=== PATIENT | male | born 1945 | race Caucasian/White ===

== ENCOUNTER 2020-07-22 08:31 | Emergency (ER) | payer OTHER ==
--- OUTSIDE RECORDS SUMMARY | 2020-07-22 08:36 | XMS REPORT | Continuity of Care Document ---
:1945 Author Organization [facility] t Address [address] [place] [address] Care Team Providers Name Role Phone Sj Meneses MD Primary Care Physician Keon Palmer MD Attending Clinician Daniel Alfaro MD Attending Clinician [phone] Jama CAR Attending Clinician Unavailable Akila MEDEROS Attending Clinician Jose Carlos Huertas MD Attending Clinician Jakub DUBOIS Attending Clinician Unavailable Anand [facility] Attending Clinician Unavailable Maryuri Sin NP Attending Clinician Sunday Moreira [facility] Attending Clinician Unavailable Angel Mera MD Attending Clinician Gita Kinsey MD Attending Clinician Toshia CAR Attending Clinician Unavailable Magdi DUBOIS Attending Clinician Unavailable Amber Hernandez RD Attending Clinician Unavailable Misael Garrett MD Attending Clinician Justa MEDEROS Attending Clinician Joyce [facility] Attending Clinician Unavailable Андрей CAR Attending Clinician Unavailable Vlad Moreno NP Attending Clinician Alfred DUBOIS Attending Clinician Unavailable Provider Attending Clinician Unavailable Marko MEDEROS Attending Clinician Leora Aldridge MD Attending Clinician Provider Attending Clinician Lab, Fam Pob I Attending Clinician Unavailable Doctor Unassigned, Name Attending Clinician Unavailable ALEKSANDAR Admitting Clinician Unavailable AKILA Admitting Clinician Unavailable AVINASH Admitting Clinician Unavailable Payers Payer Name Policy Type Policy Effective Date Expiration Date Sour ce Number MEDICAREMEDICARE PART [id number] 2008 Ho carmelo A AND 00:00:00 Cheondoism [id number] 2008[facility] COLONIALCOLONIAL [id number] 2012 Carmichael [id number] 2012 00:00:00 Met yaquelin SolanoCommercial Problems Condition Condition Condition Status Onset Resolution Last Treating Co mments Source Name Details Category Date Date Treatment Clinician Date Confusion Confusion Disease Active [facility] 4-27 Methodi 00:00: st 00 Aphasia Aphasia Disease Active [facility] 4-27 Methodi 00:00: st 00 Expressive Expressive Disease Active [facility] aphasia aphasia 3-15 Methodi 00:00: st 00 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 Added automatic ally from request for surgery [id number] Weight Weight Disease Active Overview: Car n loss loss 2-02 Formattin Methodi 00:00: g of this st 00 note might be different from the original. Added automatic ally from request for surgery [id number] Mass of Mass of Disease Active Overview: [place] gastroesop gastroesop 2-02 [place] Methodi hageal hageal 00:00: g of this st junction junction 00 note might be different from the original. Added automatic ally from request for surgery [id number] Malignant Malignant Disease Active [facility] [facility] tumor of tumor of -02 Method i abdominal abdominal 00:00: st part of part of 00 esophagus esophagus Allergies, Adverse Reactions, Alerts Allergy Allergy Status Severity Reaction(s) Onset Inactive Treating Comm ents Source Name Type Date Date Clinician Aspirin Propensi Active Other (See Nose [facility] ty to Comments) 3-16 bleed Methodi adverse 00:00: st reaction 00 s to drug Penicill Propensi Active Rash [place] ins ty to 04-09 Methodi adverse 00:00: st reaction 00 s to drug Family History Family Member Diagnosis Comments Start Date Stop Date Source Natural brother Lung cancer Carmichael Cheondoism Natural father Heart disease Carmichael Cheondoism Natural mother Heart disease [place]ondoism Paternal grandmother Heart disease [place] Social History Social Habit Start Date Stop Date Quantity Comments Source History SDOH [facility] Meth odist Alcohol Std Drinks History SDOH [place] Meth odist Alcohol Binge Exposure to Not sure [facility] Metho dist SARS-CoV-2 (event) Tobacco use and 2020-06-04 2020-06-04 Never used [facility] ethodist exposure 00:00:00 00:00:00 Alcohol intake 2020-06-04 2020-06-04 Lifetime [facility] thodist 00:00:00 00:00:00 non-drinker (finding) History SDOH 2020-04-09 2020-04-09 1 [place] Meth odist Alcohol Frequency 00:00:00 00:00:00 [birth year] Amol Null ethodist 00:00:00 00:00:00 Smoking Status Start Date Stop Date Source Never smoker [place] Gurpreetis t Medications Ordered Filled Start Stop Current Ordering Indication Dosage Frequency Signature Comments Components Source Medication Medication Date Date Medication? Clinician (SIG) Name Name pantoprazol Yes 40mg QD Take 40 mg Carmichael e 4-30 by mouth Methodi (PROTONIX) 15:38: daily. st 40 MG EC 41 tablet bisoprolol Yes 2.5mg Q.5D Take 2.5 [place] (ZEBETA) 5 4-30 mg by Methodi MG tablet 15:38: mouth 2 st 41 (two) times a day. aspirin 81 Yes 81mg QD Chew 81 mg [place] mg chewable 4-30 daily. Method i tablet 15:38: st 41 clopidogreL 2020- Yes 75mg QD Take 1 [place] (PLAVIX) 75 4-30 05-18 tablet (75 M ethodi mg tablet 00:00: 23:59 mg total) st 00 :00 by mouth daily for 18 days. rosuvastati Yes 10mg QD Take 10 mg Carmichael n (CRESTOR) 4-07 by mouth Meth aishwarya 10 mg 00:00: daily. st tablet 00 predniSONE 2020- No TAKE 2 [place] (DELTASONE) 3-26 04-30 TABLETS BY M ethodi 50 mg 00:00: 00:[address] tablet 00 :00 DAILY FOR 5 DOSES TAKE ON DAYS 1 5 OF CHEMOTHERA PY aspirin 2020- No 81mg QD Take 1 Carmichael (ECOTRIN) 3-20 04-19 tablet (81 Met hodi 81 MG 00:00: 23:59 mg total) st enteric 00 :00 by mouth coated daily for tablet 30 days. rosuvastati 2020- No 20mg QD Take 1 [place] n (CRESTOR) 3-19 04-18 tablet (20 M ethodi 20 mg 00:00: 23:59 mg total) st tablet 00 :00 by mouth nightly for 30 days. aspirin 2020- No 81mg QD Take 81 mg [place] (ECOTRIN) 3-16 03-16 by mouth Metho di 81 MG 10:32: 00:[address] enteric 03 :00 coated tablet predniSONE 2020- No Chemotherap 100mg QD Take 2 Carmichael (DELTASONE) 3-04 03-09 y induced tablets Methodi 50 mg 00:00: 23:59 neutropenia (100 mg s t tablet 00 :00 (HCC) total) by mouth daily for 5 doses. Take on days 1-5 of chemothera py. doxycycline 2020-2020- No Chemotherap 100mg Q.5D Take 1 Carmichael (DORYX) 100 2- 03-29 y-induced tablet Methodi MG EC 00:00: 23:59 neutropenia (100 mg s t tablet 00 :00 (HCC) total) by mouth 2 (two) times a day for 30 days. baclofen 5 Yes 5mg Q.[id number] Take 1 [facility]ichael mg tablet 2- [id number] tablet (5 Methodi 00:00: 3D mg total) st 00 by mouth 3 (three) times a day as needed (hiccups). lovastatin 2020- No 40mg QD Take 40 mg [place]ichael (MEVACOR) 04-27 by mouth Metho di 10 MG 13:49: 00:[address] tablet 22 :00 clopidogreL No 75mg QD Take 75 mg [place]ichael (PLAVIX) 75 04-27 by mouth Met hodi mg tablet 13:49: 00:[address] 22 :00 calcium 2020- No 500mg Q.[id number] Chew 1 Carmichael carbonate 04-27 [id number] tablet M ethodi (TUMS) 200 00:00: 23:59 3D ([address] mg calcium 00 :00 total) 3 (500 mg) (three) chewable times a tablet day as needed for indigestio n for up to 30 days. bisoprolol 2020- No 5mg Q.5D Take 1 [place] (ZEBETA) 5 04-27 tablet (5 Met hodi MG tablet 00:00: 00:00 mg total) st 00 :00 by mouth 2 (two) times a day for 30 days. pantoprazol 2020- No 40mg QD Take 1 [place] e 04-27 tablet (40 Methodi (Protonix) 00:00: 00:00 mg total) s t 40 MG EC 00 :00 by mouth tablet daily for 30 days. pantoprazol 2020- No 40mg Q.5D Take 1 [place] e 04-27 tablet (40 Methodi (Protonix) 00:00: 00:00 mg total) s t 40 MG EC 00 :00 by mouth 2 tablet (two) times a day. levoFLOXaci 2020- No 500mg QD Take 1 [place] n 04-26 tablet Methodi (LEVAQUIN) 00:00: 00:00 ([address] 500 MG 00 :00 total) by tablet mouth daily for 180 days. acyclovir 2020- Yes 400mg Q.5D Take 1 [place] (Zovirax) 04-25-17 tablet Methodi 400 MG 00:00: 23:59 ([address] tablet 00 :00 total) by mouth 2 (two) times a day for 180 days. ondansetron 2020- No 4mg Q8H Take 1 [place] ODT 04-25 03-20 tablet (4 Methodi (ZOFRAN-ODT 00:00: 23:59 mg total) st ) 4 MG 00 :00 by mouth disintegrat every 8 ing tablet (eight) hours as needed for nausea or vomiting for up to 30 days. fluconazole 2020- No 200mg QD Take 1 [place] (Diflucan) 04-25 tablet Method i 200 MG 00:00: 00:00 ([address] tablet 00 :00 total) by mouth daily for 180 days. baclofen 5 2020- No 5mg Q.[id number] Take 1 [place]ichael mg tablet 04-18 [id number] tablet (5 Methodi 00:00: 00:00 3D mg total) st 00 :00 by mouth 3 (three) times a day as needed (hiccups). niacin 2020- No 1000mg QD Take 1,000 [place] (Niaspan 04-15- mg by Methodi Extended-Re 17:25: 00:[address] lease) 1000 12 :00 nightly. MG CR tablet pantoprazol 2020- No [place] e 04-06 Methodi (PROTONIX) 00:00: 00:00 st 40 MG EC 00 :00 tablet isosorbide 2020- No [place] mononitrate 04-05 Methodi (IMDUR) 30 00:00: 00:00 st MG 24 hr 00 :00 tablet ondansetron 2020- No [place] ODT 04-05 Methodi (ZOFRAN-ODT 00:00: 00:00 st ) 4 MG 00 :00 disintegrat ing tablet lovastatin 2020- No 40mg QD Take 40 mg Carmichael (MEVACOR) 03-14- by mouth Metho di 40 mg 00:00: 00:[address] tablet 00 :00 clopidogreL 75mg QD Take 75 mg Am[facility] (PLAVIX) 75 03-1408 by mouth Met hodi mg tablet 00:00: 00:[address] 00 :00 BISOPROLOL- 2019-03 1{tbl} QD Take 1 [place] HYDROCHLORO 03-22 02-20 tablet by Me perez THIAZIDE 00:00: 00:[address] ORAL 00 :00 daily. metFORMIN 2019-03 500mg Q.5D Take 500 [place] (GLUCOPHAGE 03-15 02-20 mg by Method i ) 500 mg 00:00: 00:[address] tablet 00 :00 (two) times a day. Vital Signs Vital Name Observation Time Observation Value Comments Source Body temperature 2020-07-12 11:15:00 36.28 Nickie Thao Valdes Body height 2020-07-12 11:15:00 185.4 cm Amol Valdes Body weight 2020-07-12 11:15:00 75.887 kg Amol Valdes BMI 2020-07-12 11:15:00 22.07 kg/m2 Amol Valdes Systolic blood 2020-07-05 12:06:24 129 mm[Hg] Car Valdes pressure Diastolic blood 2020-07-05 12:06:24 82 mm[Hg] Stefani Valdes pressure Heart rate 2020-07-05 12:06:24 78 /min Amol Valdes Oxygen saturation in 2020-07-05 12:06:24 100 /min Amol Valdes Arterial blood by Pulse oximetry Respiratory rate 2020-07-05 07:13:14 17 /min Thao Valdes Procedures Procedure Date / Time Performing Clinician Source Performed BASIC METABOLIC PANEL 2020-07-05 11:20:00 Emil Huertas PHOSPHORUS LEVEL 2020-07-05 11:20:00 Emil Huertas MAGNESIUM LEVEL 2020-07-05 11:20:00 Emil Huertas ESTIMATED GFR 2020-07-05 11:20:00 Emil Huertas US CAROTID DUPLEX 2020-07-05 09:00:00 Arpita Garrison BILATERAL HC COMPLETE BLD COUNT 2020-07-05 06:15:00 Dinakar, Emil reyes Cheondoism W/AUTO DIFF Jose Carlos BASIC METABOLIC PANEL 2020-07-05 06:15:00 Dinakar, Emil Valdes Jose Carlos MAGNESIUM LEVEL 2020-07-05 06:15:00 Dinakar, Emil Moscosora PHOSPHORUS LEVEL 2020-07-05 06:15:00 Dinakar, Emil Branch FL ESOPHAGRAM SINGLE 2020-07-04 14:46:42 Dinakar, Emil Valdes CONTRAST Jose Carlos CBC WITH PLATELET AND 2020-07-04 04:00:00 Dinakar, Emil Valdes DIFFERENTIAL Jose Carlos BASIC METABOLIC PANEL 2020-07-04 04:00:00 Dinakar, Emil Moscosora MAGNESIUM LEVEL 2020-07-04 04:00:00 Dinakar, Emil Lewis odgiana Moscosora PHOSPHORUS LEVEL 2020-07-04 04:00:00 Dinakar, Emil Branch LIPID PANEL 2020-07-04 04:00:00 Arpita Garrison ESTIMATED GFR 2020-07-04 04:00:00 Dinakar, Emil Moscosora MANUAL DIFFERENTIAL 2020-07-04 04:00:00 Dinakar, Emil Branch EEG AWAKE/ASLEEP LESS THAN 2020-07-03 15:14:25 Arpita Garrison 41 MIN CBC WITH PLATELET AND 2020-07-03 05:10:00 Dinakar, Emil reyes Cheondoism DIFFERENTIAL Jose Carlos MANUAL DIFFERENTIAL 2020-07-03 05:10:00 Dinakar, Emil Valdes Jose Carlos BASIC METABOLIC PANEL 2020-07-03 04:00:00 Dinakar, Emil Moscosora MAGNESIUM LEVEL 2020-07-03 04:00:00 Dinakar, Emil Lewis odist Jose Carlos PHOSPHORUS LEVEL 2020-07-03 04:00:00 Dinakar, Emil Branch ESTIMATED GFR 2020-07-03 04:00:00 Dinakar, Emil Branch URINE DRUGS OF ABUSE 2020-07-03 00:24:00 Steffany Edwards SCREEN SEDIMENTATION RATE 2020-07-02 22:30:00 Steffany Edwards ethodist MRI BRAIN W WO CONTRAST 2020-07-02 21:40:00 Jarod Veloz MRA NECK WO CONTRAST 2020-07-02 21:15:00 Steffany Edwards MRA HEAD WO CONTRAST 2020-07-02 21:10:00 Steffany Edwards HOMOCYSTINE, PLASMA 2020-07-02 19:32:00 Steffany Edwards FOLATE LEVEL 2020-07-02 19:32:00 Steffany Edwards VITAMIN B12 LEVEL 2020-07-02 19:32:00 Steffany Edwards thodist THYROID STIMULATING 2020-07-02 19:32:00 Steffany Edwards HORMONE T4, FREE 2020-07-02 19:32:00 Steffany Edwards C-REACTIVE PROTEIN 2020-07-02 19:32:[address] HEAD WO CONTRAST 2020-07-02 18:23:36 Emil Huertas BLOOD CULTURE, AEROBIC & 2020-07-02 17:30:00 Aleksandar, Emil Valdes ANAEROBIC Jose Carlos CBC WITH PLATELET AND 2020-07-02 17:30:00 Emil Huertas DIFFERENTIAL Jose Carlos FIBRINOGEN 2020-07-02 17:30:00 Emil Huertas PARTIAL THROMBOPLASTIN 2020-07-02 17:30:00 Emil Huertas Cheondoism TIME (PTT) Jose Carlos PROTHROMBIN TIME WITH INR 2020-07-02 17:30:00 Emil Huertas BASIC METABOLIC PANEL 2020-07-02 17:30:00 Emil Huertas HEPATIC FUNCTION PANEL 2020-07-02 17:30:00 Emil Huertas MAGNESIUM LEVEL 2020-07-02 17:30:00 Emil Huertas PHOSPHORUS LEVEL 2020-07-02 17:30:00 DinyangEmil hodgiana Branch URIC ACID LEVEL 2020-07-02 17:30:00 Aleksandar, Emil Carmichael Meth odgiana Branch ESTIMATED GFR 2020-07-02 17:30:00 Dinakarebeca, Emil Carmichael Debbie odgiana Jose Carlos MANUAL DIFFERENTIAL 2020-07-02 17:30:00 [facility]inyang[facility] Che[facility] COVID-19 QUALITATIVE PCR 2020-07-02 13:30:00 Bryan Palmer Cheondoism Silvestre CBC WITH PLATELET AND 2020-06-21 08:00:00 Pingali, Bryan Osuna ton Cheondoism DIFFERENTIAL Silvestre COMPREHENSIVE METABOLIC 2020-06-21 08:00:00 PinBryan snyderton Cheondoism PANEL Silvestre MAGNESIUM LEVEL 2020-06-21 08:00:00 Bryan Palmer Me thodist Silvestre ESTIMATED GFR 2020-06-21 08:00:00 Bryan Palmer Me thodist Silvestre MANUAL DIFFERENTIAL 2020-06-21 08:00:00 PingalBryan khan n Cheondoism Silvestre HC COMPLETE BLD COUNT 2020-05-31 07:45:00 PinBryan snyder Cheondoism W/AUTO DIFF Silvestre COMPREHENSIVE METABOLIC 2020-05-31 07:45:00 PinBryan snyderton Cheondoism PANEL Silvestre MAGNESIUM LEVEL 2020-05-31 07:45:00 Bryan Palmer Me thodist Silvestre ESTIMATED GFR 2020-05-31 07:45:00 Bryan Palmer Me thodist Silvestre SMEAR REVIEW 2020-05-31 07:45:00 Bryan Palmer Me thodist Silvestre PET CT SKULL BASE TO MID 2020-05-30 10:48:00 Bryan Palmer Cheondoism THIGH Silvestre POC GLUCOSE 2020-05-30 09:27:00 Bryan Palmer Me thodist Silvestre POC GLUCOSE 2020-05-23 16:58:00 GitaAmol Mcgarry POC GLUCOSE 2020-05-23 11:52:00 Amol Powell POC GLUCOSE 2020-05-23 07:54:00 Amol Powell CBC WITH PLATELET AND 2020-05-23 04:58:00 Dinakar, Emil reyes Cheondoism DIFFERENTIAL Jose Carlos BASIC METABOLIC PANEL 2020-05-23 04:58:00 Dinakar, Emil reyes Cheondoism Jose Carlos MAGNESIUM LEVEL 2020-05-23 04:58:00 Dinakar, Emil Lewis odgiana Jose Carlos PHOSPHORUS LEVEL 2020-05-23 04:58:00 Dinakar, Emil Branch ESTIMATED GFR 2020-05-23 04:58:00 Dinakar, Emil Lewis odgiana Jose Carlos MANUAL DIFFERENTIAL 2020-05-23 04:58:00 Dinakar, Emil Branch TTE COMPLETE, W CONTRAST, 2020-05-23 02:30:00 Arian Marsh Cheondoism W DOPPLER ([id number]) POC GLUCOSE 2020-05-22 16:33:[address] CHEST W CONTRAST 2020-05-22 16:02:55 Herson Mera ABDOMEN W CONTRAST PELVIS W CONTRAST POC GLUCOSE 2020-05-22 11:53:00 Amol Powell US CAROTID DUPLEX 2020-05-22 10:15:00 Arian Marsh Wy thodist BILATERAL POC GLUCOSE 2020-05-22 08:06:00 Amol Powell CBC WITH PLATELET AND 2020-05-22 04:09:00 Dinakar, Emil reyes Cheondoism DIFFERENTIAL Jose Carlos MANUAL DIFFERENTIAL 2020-05-22 04:09:00 Dinakar, Emil Branch BASIC METABOLIC PANEL 2020-05-22 04:00:00 Dinakar, Emil Moscosora MAGNESIUM LEVEL 2020-05-22 04:00:00 Dinakar, Emil Lewis odist Jose Carlos PHOSPHORUS LEVEL 2020-05-22 04:00:00 Emil Huertas ESTIMATED GFR 2020-05-22 04:00:00 Emil Huertas POC GLUCOSE 2020-05-21 22:50:00 Amol Powell odist Audrey POC GLUCOSE 2020-05-21 20:37:00 Amol Powell Debbie odgiana Audrey POC GLUCOSE 2020-05-21 17:26:00 Amol Powell odgiana Audrey FL FLUOROSCOPY OF TUBE 2020-05-21 15:07:48 Diego Roper on Cheondoism MRI BRAIN W CONTRAST 2020-05-21 14:30:00 Arian Marsh POC GLUCOSE 2020-05-21 12:03:00 Amol Powell odist Audrey POC GLUCOSE 2020-05-21 08:40:00 Amol Powell odgiana Audrey MRI BRAIN WO CONTRAST 2020-05-21 08:00:00 Jimmy Abreu CONSULT TO OSTOMY CARE 2020-05-21 07:42:57 PodtElizabeth NURSE TROPONIN 2020-05-21 06:00:00 Herson Mera Wy thodist CBC WITH PLATELET AND 2020-05-21 05:00:00 DinEmil soria Cheondoism DIFFERENTIAL Jose Carlos BASIC METABOLIC PANEL 2020-05-21 05:00:00 Emil Huertas MAGNESIUM LEVEL 2020-05-21 05:00:00 Emil Huertas PHOSPHORUS LEVEL 2020-05-21 05:00:00 Emil Huertas ESTIMATED GFR 2020-05-21 05:00:00 Emil Huertas MANUAL DIFFERENTIAL 2020-05-21 05:00:00 Emil Huertas TROPONIN 2020-05-21 01:10:00 Herson Mera Me thodist URINE CULTURE 2020-05-21 00:30:00 Emil Huertas URINALYSIS SCREEN AND 2020-05-21 00:30:00 Emil Huertas Cheondoism MICROSCOPY, WITH REFLEX TO Jose Carlos CULTURE URINE DRUGS OF ABUSE 2020-05-21 00:30:00 Emil Huertas Cheondoism SCREEN Jose Carlos POC GLUCOSE 2020-05-20 23:42:00 Emil Huertas Meth odist Jose Carlos URINE CULTURE 2020-05-20 23:15:00 Herson Mera Me thodist LACTIC ACID LEVEL 2020-05-20 23:15:00 Herson Mera LIPID PANEL 2020-05-20 23:15:00 Karim, Jimmy Carmichael Wy thodist HOMOCYSTINE, PLASMA 2020-05-20 23:15:00 Jimmy Abreu Cheondoism FOLATE LEVEL 2020-05-20 23:15:00 Brady, Jimmy Carmichael Wy thodist VITAMIN B12 LEVEL 2020-05-20 23:15:00 Jimmy Abreu Cheondoism SEDIMENTATION RATE 2020-05-20 23:15:00 KarimJimmy Cheondoism C-REACTIVE PROTEIN 2020-05-20 23:15:00 Karim, Jimmy Carmichael Cheondoism PROTHROMBIN TIME WITH INR 2020-05-20 23:15:00 Jimmy Abreu Cheondoism PARTIAL THROMBOPLASTIN 2020-05-20 23:15:00 KarimJimmy stoeric Cheondoism TIME (PTT) URINE DRUGS OF ABUSE 2020-05-20 23:15:00 Jimmy Abreu on Cheondoism SCREEN HIV AG/AB COMBINATION 2020-05-20 23:15:00 Karim Sanhernando calhoun Cheondoism SYPHILIS TOTAL ANTIBODY 2020-05-20 23:15:00 KarimJimmyton Cheondoism URINALYSIS SCREEN AND 2020-05-20 23:15:00 Herson Mera Cheondoism MICROSCOPY, WITH REFLEX TO CULTURE LACTIC ACID LEVEL 2020-05-20 21:20:00 Herson Mera COVID-19 QUALITATIVE PCR 2020-05-20 19:55:00 Herson Mera Cheondoism ECG 12-LEAD 2020-05-20 19:23:29 [address] thodist CT ANGIOGRAM NECK W WO 2020-05-20 19:14:38 Herson Mera Cheondoism CONTRAST CT ANGIOGRAM HEAD W WO 2020-05-20 19:14:05 Herson Mera Cheondoism CONTRAST CT HEAD WO CONTRAST 2020-05-20 19:06:43 Herson Mera Cheondoism CBC WITH PLATELET AND 2020-05-20 18:57:00 Herson Mera Cheondoism DIFFERENTIAL TROPONIN 2020-05-20 18:57:00 Herson Mera Me thodist B NATRIURETIC PEPTIDE 2020-05-20 18:57:00 Herson Mera Cheondoism THYROID STIMULATING 2020-05-20 18:57:00 Herson Mera Cheondoism HORMONE T4, FREE 2020-05-20 18:57:00 Herson Mera Me thodist PROTHROMBIN TIME WITH INR 2020-05-20 18:57:00 Herson Mera Cheondoism PARTIAL THROMBOPLASTIN 2020-05-20 18:57:00 Herson Mera Cheondoism TIME (PTT) MANUAL DIFFERENTIAL 2020-05-20 18:57:00 Herson Mera Cheondoism POC GLUCOSE 2020-05-20 18:50:00 Herson Mera Me thodist ECG ED PRELIMINARY 2020-05-20 18:45:21 Herson Mera Cheondoism INTERPRETATION IR JEJUNAL CATHETER 2020-05-13 15:21:39 Ricky Garrett Cheondoism EVAL/POSSIBLE EXCHANGE POC GLUCOSE 2020-05-13 12:43:00 Ricky Garrett Meth odist CBC WITH PLATELET AND 2020-05-12 08:29:00 Stefany Marr Cheondoism DIFFERENTIAL BASIC METABOLIC PANEL 2020-05-12 08:29:00 Stefany Marr Cheondoism WHOLE BLOOD ELECTROLYTES 2020-05-12 08:29:00 Stefany Marrleila woodson Cheondoism PROTHROMBIN TIME WITH INR 2020-05-12 08:29:00 Stefany Marr Gian danielston Cheondoism PARTIAL THROMBOPLASTIN 2020-05-12 08:29:00 Stefany Marr on Cheondoism TIME (PTT) TYPE AND SCREEN 2020-05-12 08:29:00 Stefany Marr Meth odist MAGNESIUM LEVEL 2020-05-12 08:29:00 Stefany Marr Meth odist ESTIMATED GFR 2020-05-12 08:29:00 Stefany Marr Meth odist MANUAL DIFFERENTIAL 2020-05-12 08:29:00 Stefany Marr Cheondoism CBC WITH PLATELET AND 2020-05-10 08:11:00 Pingali, Bryan Koen [place]ism DIFFERENTIAL Silvestre COMPREHENSIVE METABOLIC 2020-05-10 08:11:00 Pingali, Bryan Herbert [place]ism PANEL Slivestre MAGNESIUM LEVEL 2020-05-10 08:11:00 PingaliBryan Carmichael Me thodist Silvestre ESTIMATED GFR 2020-05-10 08:11:00 Pingali, Bryan Pascualerin Carmichael Me thodist Silvestre MANUAL DIFFERENTIAL 2020-05-10 08:11:00 PingaliBryanto n Cheondoism Silvestre CBC WITH PLATELET AND 2020-05-07 08:30:00 Pingali, Bryan Keon [place]ism DIFFERENTIAL Silvestre COMPREHENSIVE METABOLIC 2020-05-07 08:30:00 Pingali, Bryan Keon [place] PANEL Silvestre LDH 2020-05-07 08:30:00 PingaliBryan Carmichael Me thodist Silvestre URIC ACID LEVEL 2020-05-07 08:30:00 PingaliBryan Carmichael Me thodist Silvestre MAGNESIUM LEVEL 2020-05-07 08:30:00 PingaliBryanerin Carmichael Me thodist Silvestre ESTIMATED GFR 2020-05-07 08:30:00 PingaliBryani Carmichael Me thodist Silvestre MANUAL DIFFERENTIAL 2020-05-07 08:30:00 Pingali, Bryan Keon [place] Silvestre TYPE AND SCREEN 2020-05-07 08:12:00 StephenmerleerinSaerin Carmichael Me thodist Silvestre TRANSFUSE RED BLOOD CELLS 2020-05-03 16:00:10 Estela Bryan Valdes Silvestre TRANSFUSE RED BLOOD CELLS 2020-05-03 12:31:45 Alena Moreno TYPE AND SCREEN 2020-05-03 09:16:00 JoshAlena PREPARE PLATELET PHERESIS 2020-05-03 09:16:00 JoshAlena COMPREHENSIVE METABOLIC 2020-05-03 09:15:00 Alena Moreno PANEL LDH 2020-05-03 09:15:00 JoshAlena URIC ACID LEVEL 2020-05-03 09:15:00 Alena Moreno MAGNESIUM LEVEL 2020-05-03 09:15:00 JoshAlena Cheondoism ESTIMATED GFR 2020-05-03 09:15:00 Josh, Alena Valdes CBC WITH PLATELET AND 2020-05-03 08:55:00 JoshAlenaist DIFFERENTIAL MANUAL DIFFERENTIAL 2020-05-03 08:55:00 Josh, Alena Dyntianna rhodes Cheondoism CBC WITH PLATELET AND 2020-05-01 09:05:00 JoshAlena Cheondoism DIFFERENTIAL MANUAL DIFFERENTIAL 2020-05-01 09:05:00 Josh, Alena Dyntianna Springer usunique Cheondoism CBC WITH PLATELET AND 2020-04-27 03:35:00 Car Powell Cheondoism DIFFERENTIAL Audrey BASIC METABOLIC PANEL 2020-04-27 03:35:00 Car Powell HEPATIC FUNCTION PANEL 2020-04-27 03:35:00 Stefani Powell ESTIMATED GFR 2020-04-27 03:35:00 Amol Powell Meth odist Audrey MANUAL DIFFERENTIAL 2020-04-27 03:35:00 Amol Powell POC GLUCOSE 2020-04-27 00:06:00 Amol Powell Debbie odgiana Audrey HEMOGLOBIN & HEMATOCRIT 2020-04-26 20:30:00 Thao Powell Cheondoism Audrey POC GLUCOSE 2020-04-26 18:14:00 Amol Powell Debbie odgiana Bhatiaalo POC GLUCOSE 2020-04-26 12:13:00 Amol Powell Debbie odgiana Audrey HEMOGLOBIN & HEMATOCRIT 2020-04-26 11:40:00 Thao Powell Audrey PROTHROMBIN TIME WITH INR 2020-04-26 11:40:00 Gian Powellunique Cheondoism Audrey POC GLUCOSE 2020-04-26 05:43:00 Amol Powell Debbie kbgiana Audrey BASIC METABOLIC PANEL 2020-04-26 03:18:00 Antolin Wilburn on Cheondoism MAGNESIUM LEVEL 2020-04-26 03:18:00 Antolin Wilburn Met hodist PHOSPHORUS LEVEL 2020-04-26 03:18:00 Antolin Wilburn Me thodist ESTIMATED GFR 2020-04-26 03:18:00 Antolin Wilburn Met hodist HC COMPLETE BLD COUNT 2020-04-26 02:59:00 Antolin Wilburn on Cheondoism W/AUTO DIFF POC GLUCOSE 2020-04-25 23:21:00 Amol Powell Debbie odgiana Audrey POC GLUCOSE 2020-04-25 18:02:00 Amol Powell Debbie odgiana Audrey POC GLUCOSE 2020-04-25 12:13:00 Amol Powell Meth odgiana Audrey POC GLUCOSE 2020-04-25 05:54:00 Amol Powell Debbie filiberto Mcguire CBC WITH PLATELET AND 2020-04-25 03:15:00 Antolin Wilburn on Cheondoism DIFFERENTIAL BASIC METABOLIC PANEL 2020-04-25 03:15:00 Antolin Wilburn on Cheondoism MAGNESIUM LEVEL 2020-04-25 03:15:00 Antolin Wilburn Met hodist PHOSPHORUS LEVEL 2020-04-25 03:15:00 WilburnAntolin Me thodist ESTIMATED GFR 2020-04-25 03:15:00 AkilaAntolin Met hodist TYPE AND SCREEN 2020-04-25 03:15:00 Amol Powell Debbie Mcguire MANUAL DIFFERENTIAL 2020-04-25 03:15:00 Akila Antolin Amol Cheondoism POC GLUCOSE 2020-04-25 01:16:00 Amol Powell Meth odist Audrey POC GLUCOSE 2020-04-24 18:05:00 Gita RichardsAmol Meth odgiana Audrey POC GLUCOSE 2020-04-24 11:44:00 Amol Powell Meth odist Audrey POC GLUCOSE 2020-04-24 05:15:00 Amol Powell Meth odgiana Audrey HC COMPLETE BLD COUNT 2020-04-24 03:15:00 Antolin Wilburn on Che[facility]ism W/AUTO DIFF BASIC METABOLIC PANEL 2020-04-24 03:15:00 Antolin Wilburn on Che[facility]ism MAGNESIUM LEVEL 2020-04-24 03:15:00 Akila Antolin Carmichael Met hodist PHOSPHORUS LEVEL 2020-04-24 03:15:00 Dax Wilburntor Amol Me thodist ESTIMATED GFR 2020-04-24 03:15:00 Akila Antolin Amol Met hodist POC GLUCOSE 2020-04-23 18:01:00 Amol Powell Debbie odgiana Bhatiaalo POC GLUCOSE 2020-04-23 12:27:00 Amol Powell Debbie odgiana Mcguire HC COMPLETE BLD COUNT 2020-04-23 04:00:00 Antolin Wilburn on Che[facility]ism W/AUTO DIFF BASIC METABOLIC PANEL 2020-04-23 04:00:00 Antolin Wilburn on Cheondoism MAGNESIUM LEVEL 2020-04-23 04:00:00 Dax Wilburntor Amol Met hodist PHOSPHORUS LEVEL 2020-04-23 04:00:00 Dax Wilburntor Amol Me thodist URIC ACID LEVEL 2020-04-23 04:00:00 Dax Wilburnruba Carmichael Met hodist LDH 2020-04-23 04:00:00 Antolin Wilburn Met hodist ESTIMATED GFR 2020-04-23 04:00:00 Antolin Wilburn Met hodist POC GLUCOSE 2020-04-22 22:20:00 Amol Powell Meth odist Audrey POC GLUCOSE 2020-04-22 17:06:00 Amol Powell Meth odist Audrey POC GLUCOSE 2020-04-22 11:54:00 AmritaEmil soria Meth odist Jose Carlos POC GLUCOSE 2020-04-22 05:41:00 Antolin Wilburn Met hodist HC COMPLETE BLD COUNT 2020-04-22 04:40:00 Antolin Wilburn on [facility]ism W/AUTO DIFF BASIC METABOLIC PANEL 2020-04-22 04:00:00 Antolin Wilburn on Cheondoism MAGNESIUM LEVEL 2020-04-22 04:00:00 Antolin Wilburn Met hodist PHOSPHORUS LEVEL 2020-04-22 04:00:00 Antolin Wilburn Me thodist URIC ACID LEVEL 2020-04-22 04:00:00 Antolin Wilburn Met hodist LDH 2020-04-22 04:00:00 Antolin Wilburn Met hodist ESTIMATED GFR 2020-04-22 04:00:00 Antolin Wilburn Met hodist POC GLUCOSE 2020-04-21 21:45:00 Antolin Wilburn Met hodist POC GLUCOSE 2020-04-21 17:13:00 Antolin Wilburn Met hodist XR CHEST 1 VW PORTABLE 2020-04-21 11:34:16 Antolin Wilburn Che[facility]ism XR ABDOMEN 1 VW PORTABLE 2020-04-21 11:33:52 Antolin Wilburn Cheondoism POC GLUCOSE 2020-04-21 11:10:00 Antolin Wilburn Met hodist ECG 12-LEAD 2020-04-21 07:24:07 Antolin Wilburn Met hodist TYPE AND SCREEN 2020-04-21 07:00:00 Antolin Wilburn Met hodist BASIC METABOLIC PANEL 2020-04-21 04:00:00 Antolin Wilburn on Che[facility]ism MAGNESIUM LEVEL 2020-04-21 04:00:00 Antolin Wilburn Met hodist PHOSPHORUS LEVEL 2020-04-21 04:00:00 Antolin Wilburn Me thodist URIC ACID LEVEL 2020-04-21 04:00:00 Antolin Wilburn Met hodist LDH 2020-04-21 04:00:00 Antolin Wilburn Met hodist IONIZED CALCIUM 2020-04-21 04:00:00 Antolin Wilburn Met hodist PREALBUMIN LEVEL 2020-04-21 04:00:00 Antolin Wilburn Me thodi HEPATIC FUNCTION PANEL 2020-04-21 04:00:00 Antolin Wilburn ton Che[facility]ism THYROID STIMULATING 2020-04-21 04:00:00 Antolin Wilburn Cheondoism HORMONE ESTIMATED GFR 2020-04-21 04:00:00 Anotlin Wilburn Met hodist HC COMPLETE BLD COUNT 2020-04-21 03:40:00 Antolin Wilburn on Cheondoism W/AUTO DIFF PARATHYROID HORMONE 2020-04-21 03:40:00 Antolin Wilburn [facility]ism SMEAR REVIEW 2020-04-21 03:40:00 Antolin Wilburn Met hodist POC GLUCOSE 2020-04-20 21:15:00 Antolin Wilburn Met hodist BLOOD CULTURE, AEROBIC & 2020-04-20 16:25:00 Antolin Wilburn ANAEROBIC BLOOD CULTURE, AEROBIC & 2020-04-20 16:24:00 Antolin Wilburn ANAEROBIC POC GLUCOSE 2020-04-20 16:03:00 Antolin Wilburn Met hodist HEMOGLOBIN & HEMATOCRIT 2020-04-20 12:40:00 Antolin Wilburnn Cheondoism POC GLUCOSE 2020-04-20 12:18:00 Antolin Wilburn Met hodist TTE COMPLETE, W CONTRAST, 2020-04-20 10:30:00 Amol Alfaro Che[facility]ism W DOPPLER ([id number]) Hadley RodarteDaniel POC GLUCOSE 2020-04-20 08:16:00 Antolin Wilburn Met hodist POC GLUCOSE 2020-04-20 05:17:00 Antolin Wilburn Met hodist HC COMPLETE BLD COUNT 2020-04-20 04:15:00 Antolin Wilburn on Cheondoism W/AUTO DIFF HEMOGLOBIN A1C 2020-04-20 04:15:00 Antolin Wilburn Met hodist BASIC METABOLIC PANEL 2020-04-20 04:00:00 Antolin Wilburn on Cheondoism MAGNESIUM LEVEL 2020-04-20 04:00:00 Antolin Wilburn Met hodist PHOSPHORUS LEVEL 2020-04-20 04:00:00 Antolin Wilburn Me thodist HEPATIC FUNCTION PANEL 2020-04-20 04:00:00 Antolin Wilburn [facility]ism URIC ACID LEVEL 2020-04-20 04:00:00 Antolin Wilburn Met hodist LDH 2020-04-20 04:00:00 Antolin Wilburn Met hodist ESTIMATED GFR 2020-04-20 04:00:00 Antolin Wilburn Met hodist POC GLUCOSE 2020-04-19 23:32:00 Antolin Wilburn Met hodist HEMOGLOBIN & HEMATOCRIT 2020-04-19 20:50:00 Antolin Wilburn [facility]ism HIV AG/AB COMBINATION 2020-04-19 20:00:00 Bryan [place] Sil[place]re HEPATITIS ACUTE PANEL 2020-04-19 19:58:00 Bryan Palmer[place] PHOSPHORUS LEVEL 2020-04-19 17:05:00 Antolin Wilburn Me thodist MAGNESIUM LEVEL 2020-04-19 17:05:00 Antolin Wilburn Met hodist HEPATIC FUNCTION PANEL 2020-04-19 17:05:00 Antolin Wilburn ton [facility]ism BASIC METABOLIC PANEL 2020-04-19 17:05:00 Antolin Wilburn on Cheondoism HC COMPLETE BLD COUNT 2020-04-19 17:05:00 Antolin Wilburn Stefani on Cheondoism W/AUTO DIFF ESTIMATED GFR 2020-04-19 17:05:00 Antolin Wilburn Met hodist POC GLUCOSE 2020-04-19 16:44:00 WilburnAntolin Met hodist XR CHEST 1 VW PORTABLE 2020-04-19 15:06:25 Wilburn, Antolin Thao [place] Cheondoism XR ABDOMEN 1 VW PORTABLE 2020-04-19 15:06:13 Antolin Wilburn [place] [facility] TROPONIN 2020-04-19 15:00:00 WilburnAntolin Met hodist B NATRIURETIC PEPTIDE 2020-04-19 15:00:00 WilburnAntolin magaña Stefani on Cheondoism C-REACTIVE PROTEIN 2020-04-19 15:00:00 WilburnAntolin Cheondoism COVID-19 QUALITATIVE PCR 2020-04-19 14:57:00 Bryan Palmer Cheondoism [place] ECG 12-LEAD 2020-04-19 14:48:40 WilburnAntolin Met hodist POC GLUCOSE 2020-04-15 08:14:00 Ricky Garrett Meth odist XR CHEST 1 VW PORTABLE 2020-04-15 06:50:00 Sascha Lynn [facility]ism BASIC METABOLIC PANEL 2020-04-15 04:00:00 Sascha Lynn Cheondoism HC COMPLETE BLD COUNT 2020-04-15 04:00:00 Sascha Lynn Che[facility]ism W/AUTO DIFF MAGNESIUM LEVEL 2020-04-15 04:00:00 Sascha Lynn Me thodist PHOSPHORUS LEVEL 2020-04-15 04:00:00 Sascha Lynn M ethodist ESTIMATED GFR 2020-04-15 04:00:00 Ricky Garrett Meth odist HEPATIC FUNCTION PANEL 2020-04-15 04:00:00 Ricky Garrett on Cheondoism POC GLUCOSE 2020-04-15 03:47:00 Ricky Garrett Meth odist POC GLUCOSE 2020-04-15 00:51:00 Ricky Garrett Meth odist BASIC METABOLIC PANEL 2020-04-14 23:00:00 Jeyson Edmond Isaiah ESTIMATED GFR 2020-04-14 23:00:00 Ricky Garrett Meth odist POC GLUCOSE 2020-04-14 21:32:00 Ricky Garrett Meth odist POC GLUCOSE 2020-04-14 17:54:00 Ricky Garrett Meth odist POC GLUCOSE 2020-04-14 12:17:00 Ricky Garrett Meth odist POC GLUCOSE 2020-04-14 08:05:00 Ricky Garrett Meth odist XR CHEST 1 VW PORTABLE 2020-04-14 07:35:17 Sascha Lynn HC COMPLETE BLD COUNT 2020-04-14 04:30:00 Sascha Lynn W/AUTO DIFF BASIC METABOLIC PANEL 2020-04-14 04:00:00 Sascha Lynn MAGNESIUM LEVEL 2020-04-14 04:00:00 Sascha Lynn Wy thodist PHOSPHORUS LEVEL 2020-04-14 04:00:00 Sascha Lynn ethodist ESTIMATED GFR 2020-04-14 04:00:00 Ricky Garrett Meth odist POC GLUCOSE 2020-04-14 03:38:00 Ricky Garrett Meth odist POC GLUCOSE 2020-04-13 20:54:00 Ricky Garrett Meth odist POC GLUCOSE 2020-04-13 17:56:00 Ricky Garrett Meth odist POC GLUCOSE 2020-04-13 11:47:00 Ricky Garrett Meth odist POC GLUCOSE 2020-04-13 08:18:00 Ricky Garrett Meth odist XR CHEST 1 VW PORTABLE 2020-04-13 07:57:22 Sascha Lynn BASIC METABOLIC PANEL 2020-04-13 05:45:00 Sascha Lynn HC COMPLETE BLD COUNT 2020-04-13 05:45:00 Sascha Lynn W/AUTO DIFF MAGNESIUM LEVEL 2020-04-13 05:45:00 Sascha Lynn Wy thodist PHOSPHORUS LEVEL 2020-04-13 05:45:00 Sascha Lynn Chaka ethodist ESTIMATED GFR 2020-04-13 05:45:00 Ricky Garrett Misael Carmichael Meth odist POC GLUCOSE 2020-04-13 04:36:00 Ricky Garrett Misael Carmichael Meth odist POC GLUCOSE 2020-04-13 00:58:00 Ricky Garrett Misael Carmichael Meth odist POC GLUCOSE 2020-04-12 21:31:00 Ricky Garrett Misael Carmichael Meth odist XR CHEST 1 VW PORTABLE 2020-04-12 18:07:26 Sascha Lynn IR PORT PLACEMENT 2020-04-12 16:15:00 Sascha Lynnist POC GLUCOSE 2020-04-12 11:17:00 Ricky Garrett Misael Carmichael Meth odist POC GLUCOSE 2020-04-12 08:05:00 Ricky Garrett Misael Carmichael Meth odist XR CHEST 1 VW PORTABLE 2020-04-12 07:00:00 Sascha Lynnist POC GLUCOSE 2020-04-12 04:57:00 Ricky Garrett Misael Carmichael Meth odist BASIC METABOLIC PANEL 2020-04-12 04:00:00 Sascha Lynn HC COMPLETE BLD COUNT 2020-04-12 04:00:00 Sascha Lynn W/AUTO DIFF MAGNESIUM LEVEL 2020-04-12 04:00:00 Sascha Lynn Wy thodist PHOSPHORUS LEVEL 2020-04-12 04:00:00 Sascha Lynn ethodist ESTIMATED GFR 2020-04-12 04:00:00 Ricky Garrett Misael Carmichael Meth odist POC GLUCOSE 2020-04-11 23:10:00 Ricky Garrett Misael Carmichael Meth odist XR CHEST 1 VW PORTABLE 2020-04-11 17:17:10 Sascha Lynn SURGICAL PATHOLOGY REQUEST 2020-04-11 15:01:00 Ricky Garrett Cheondoism POC GLUCOSE 2020-04-11 14:14:00 Ricky Garrett Meth odist CYTOLOGY 2020-04-11 12:40:00 Ricky Garrett Meth odist (NON-GYNECOLOGICAL) REQUEST MISCELLANEOUS REFERRAL 2020-04-11 12:30:00 Avinash Ricky Ko on Cheondoism TEST [place] AN ELECTIVE 2020-04-11 12:23:00 Lincoln Howe Meth odist ENDOTRACHEAL AIRWAY Isaiah LAPAROSCOPY, DIAGNOSTIC, 2020-04-11 11:53:00 Ricky Garrett Misael Valdes ROBOT-ASSISTED EGD, INTRAOPERATIVE 2020-04-11 11:53:00 Ricky Garrett ECG 12-LEAD 2020-04-11 10:56:34 Ricky Garrett Misael Carmichael Meth odist XR CHEST 1 VW PORTABLE 2020-04-11 06:45:00 Sascha Lynn Che[facility]ism HC COMPLETE BLD COUNT 2020-04-11 04:41:00 Sascha Lynn Cheondoism W/AUTO DIFF ABO AND RH CONFIRMATION 2020-04-11 04:41:00 Sascha Lynnton Cheondoism BASIC METABOLIC PANEL 2020-04-11 04:00:00 Sascha Lynn Cheondoism MAGNESIUM LEVEL 2020-04-11 04:00:00 Sascha Lynn Wy thodist PHOSPHORUS LEVEL 2020-04-11 04:00:00 Sascha Lynn ethodist ESTIMATED GFR 2020-04-11 04:00:00 Avinash Ricky Carmichael Meth odist PET CT SKULL BASE TO MID 2020-04-10 11:48:13 Flavia Schuster Cheondoism THIGH POC GLUCOSE 2020-04-10 10:05:00 Avinash Ricky Carmichael Meth odist XR CHEST 1 VW PORTABLE 2020-04-10 06:45:00 Woodrow Yeung on Cheondoism BASIC METABOLIC PANEL 2020-04-10 05:30:00 Sascha Lynn Cheondoism HC COMPLETE BLD COUNT 2020-04-10 05:30:00 Sascha Lynn Cheondoism W/AUTO DIFF MAGNESIUM LEVEL 2020-04-10 05:30:00 Sascha Lynn Me thodist PHOSPHORUS LEVEL 2020-04-10 05:30:00 Sascha Lynn ethodist ESTIMATED GFR 2020-04-10 05:30:00 AvinashRicky HC COMPLETE BLD COUNT 2020-04-09 16:20:00 Sascha Lynn W/AUTO DIFF PROTHROMBIN TIME WITH INR 2020-04-09 16:20:00 Sascha Lynn PARTIAL THROMBOPLASTIN 2020-04-09 16:20:00 Sascha Lynn Cheondoism TIME (PTT) BASIC METABOLIC PANEL 2020-04-09 16:20:00 Sascha Lynn MAGNESIUM LEVEL 2020-04-09 16:20:00 Sascha Lynn Wy thodist PHOSPHORUS LEVEL 2020-04-09 16:20:00 Sascha Lynn ethodist TYPE AND SCREEN 2020-04-09 16:20:00 Sascha Lynn Wy thodist ESTIMATED GFR 2020-04-09 16:20:00 Ricky Garrett COVID-19 QUALITATIVE PCR 2020-04-09 16:09:[address] CHEST ABD PEL EXTERNAL 2020-04-05 08:59:[address] ABDOMEN PELVIS W 2020-04-05 00:00:00 ProviderrBianna CONTRAST [id number] 2020-04-05 00:00:00 ProviderBrianna Plan of Care Planned Activity Planned Date Details Comments Source Future Scheduled 2020-10-06 INFLUENZA VACCINE [place] [facility] 00:00:00 [code = INFLUENZA VACCINE] Future Scheduled 1993-08-10 COLONOSCOPY SCREENING [place] [facility] 00:00:00 [code = COLONOSCOPY SCREENING] Future Scheduled 1993-08-10 SHINGLES VACCINES (#1) [place] [facility] 00:00:00 [code = SHINGLES VACCINES (#1)] Future Scheduled 1955 COVID-19 VACCINE (1) [place] [facility] 00:00:00 [code = COVID-19 VACCINE (1)] Future Scheduled 1953-08-10 DIABETES: RETINAL EYE [place] [facility] 00:00:00 EXAM [code = DIABETES: RETINAL EYE EXAM] Future Scheduled 1953-08-10 DIABETIC FOOT EXAM [place] [facility] 00:00:00 [code = DIABETIC FOOT EXAM] Future Scheduled 1949-08-10 65+ PNEUMOCOCCAL [place] [facility] Test 00:00:00 VACCINE (1 of 4 - PCV13) [code = 65+ PNEUMOCOCCAL VACCINE (1 of 4 - PCV13)] Encounters Start End Encounter Admission Attending Care Care Encounter Source Date/Time Date/Time Type Type Clinicians Facility Department ID 2020-07-12 2020-07-12 Outpatient PINGALI, [facility] [id number] [place] 00:00:00 00:00:00 BRYAN [address] 2020-07-02 2020-07-05 Inpatient DINAKAR, [facility] [id number] [place] 00:00:00 00:00:00 EMIL [address] 2020-07-02 2020-07-02 Outpatient PINGALI, [facility] [id number] [place] 00:00:00 00:00:00 BRYAN [address] 2020-06-21 2020-06-21 Outpatient PINGALI, [facility] [id number] [place] 00:00:00 00:00:00 BRYAN [address] 2020-06-04 2020-06-04 Outpatient MEISENBACH, [facility] [id number] [place] 00:00:00 00:00:00 HALIE [address] 2020-05-31 2020-05-31 Outpatient PINGALI, [facility] [id number] [place] 00:00:00 00:00:00 BRYAN [address] 2020-05-30 2020-05-30 Outpatient PINGALI, [facility] [id number] [place] 00:00:00 00:00:00 BRYAN [address] 2020-05-30 2020-05-30 Outpatient PINGALI, [facility] [id number] [place] 00:00:00 00:00:00 BRYAN [address] 2020-05-20 2020-05-24 Inpatient GITA [facility] [id number] [place] 00:00:00 00:00:00 KINSEY, [address] 2020-05-13 2020-05-13 Outpatient AVINASH, MIN [facility] [id number] [place] 00:00:00 00:00:[address] 2020-05-12 2020-05-12 Emergency EADEH, [facility] [id number] [place] 00:00:00 00:00:00 STEFANY [address] 2020-05-10 2020-05-10 Outpatient PINGALI, [facility] [id number] [place] 00:00:00 00:00:00 BRYAN [address] 2020-05-08 2020-05-08 Outpatient MEISENBACH, [facility] [id number] [place] 00:00:00 00:00:00 HALIE [address] 2020-05-08 2020-05-08 Outpatient PINGALI, [facility] [id number] [place] 00:00:00 00:00:00 BRYAN [address] 2020-05-07 2020-05-07 Outpatient PINGALI, [facility] [id number] [place] 00:00:00 00:00:00 BRYAN [address] 2020-05-03 2020-05-03 Outpatient PINGALI, [facility] [id number] [place] 00:00:00 00:00:00 BRYAN [address] 2020-05-01 2020-05-01 Outpatient PINGALI, [facility] [id number] [place] 00:00:00 00:00:00 BRYAN [address] 2020-04-19 2020-04-27 Inpatient GITA [facility] [id number] [place] 00:00:00 00:00:00 KINSEY, [address] 2020-04-19 2020-04-19 Outpatient PINGALI, [facility] [id number] [place] 00:00:00 00:00:00 BRYAN [address] 2020-04-09 2020-04-15 Inpatient AVINASH, MIN [facility] [id number] [place] 00:00:00 00:00:[address] 2020-04-09 2020-04-09 Outpatient AVINASH, MIN [facility] [id number] [place] 00:00:00 00:00:[address] 2020-04-09 2020-04-09 Outpatient AVNIASH, MIN [facility] [id number] [place] 00:00:00 00:00:[address] 2020-02-13 2020-02-13 Laboratory Lab, Adc [facility] [id number] 14:50:35 15:10:35 Only Fam Pob I Health [id number] [place] [id number] Professio [phone] nal [address] 2020-02-13 2020-02-13 Letter Doctor [place] [id number] 00:00:00 00:00:00 (Out) Unassigned, NOELLE [id number] [place] [facility] [phone] [id number] Results Test Description Test Test Results Result Source Time Comments Comments Us carotid duplex 2020-07 Interface, Radiology Carmichael Results In - 07/06/2020 M ethodist 00:18:0 12:19 AM CDTFormatting of 0 this note might be different from the original. [facility] Ultras[facility] Laboratory Carotid Artery Duplex Report [id number] [place] [address] For quality improvement analyst purposes, the categorization of the degree of the stenosis of this exam is based on criteria described in the IAC carotid stenosis grading white paper( www.intersocietal.org/Vasc ular) and Darion Savage., Shilo, CErichB., et al. Carotid artery stenosis: lan-scale and Doppler US diagnosis--Society of Radiologists in Ultrasound Consensus Conference. Radiology. 2003 Nov; 229(2):340-6. Pat.Name: AUGUSTIN CORDOBA JR Pat.ID: [id number] .Date: 07/05/2020 Refer.MD: EMIL HUERTAS MDExsanta Time: 8:21:00 AM Study Type:Carotid Height: 73in Weight: 170lb BSA: 2.01 m2 Age: 6 1945,74Y Sex: MALE Sonogrphr: Shavonne Call RVT Pat. Stat.:Inpatient Room: [place] [address] Tape Vol: Y, CPT - 4: 66605 Echo Event ID:[id number] Order ID: [id number] Reason for Study:TIA. History of stroke, hypertension and diabetes. Procedures: B-flow imaging, Colorflow, Grayscale/2D, Pulsed waveDopplerRace: C SUMMARY:-------- --PHYSICAL ASSESSMENT Blood Pressure Right 149/81 Left IV CAROTID ARTERY SCANRIGHT: There is focal hard plaque in the common carotid artery. Thereis hard plaque noted in the bulb extending into the proximal internaland external carotid artery. Colorflow is disturbed with elevatedvelocities noted in the proximal internal carotid artery. There isantegrade flow noted in the vertebral artery. LEFT: There is focal hard plaque in the common carotid artery. Thereis hard plaque noted in the bulb extending into the proximal internaland external carotid artery. Colorflow is disturbed with elevatedvelocities noted in the proximal internal carotid artery. There isantegrade flow noted in the vertebral artery. PRELIMINARY FINDINGS1. 50-69% stenosis noted in the right internal carotid artery. 2. < 50% stenosis noted in the left internal carotid artery. 3. < 50% stenosis noted in the external carotid artery, bilaterally. 4. Non-stenotic plaque noted in the common carotid artery,bilaterally. 5. Antegrade flow noted in the vertebral artery, bilaterally. 6. Volume flow of the right mid common carotid artery ranges from 536-545 ml/min.7. Volume flow of the left mid common carotid artery ranges from 450-476 ml/min.PHYSICIAN INTERPRETATION Bilateral carotid duplex examination demonstrated calcifiedatherosclerotic plaques in the bulbs/CCAs. 50-69% stenosis noted in the right internal carotid artery. < 50% stenosis noted in the left internal carotid artery. Both vertebral arteries are antegrade. FINDIN GS: Carotid Findings: Right Left Verteb.Flw Antegrade Antegrade Subclavian Triphasic Triphasic MEASUREMENTS:--- ------- DOPPLERRight CCA Dist CCA Dist PSV 53.1 cm/s CCA Dist EDV 11.9 cm/sRight CCA Mid CCA Mid PSV 76.5 cm/s CCA Mid EDV 18 cm/sRight CCA Prox CCA Prox PSV 69.5 cm/s CCA Prox EDV 14.5 cm/sRight ECA Prox ECA Prox PSV 66.7 cm/s ECA Prox EDV 7.58 cm/sRight ICA Dist ICA Dist PSV 80.6 cm/s ICA Dist EDV 22.4 cm/sRight ICA Mid ICA Mid PSV 138 cm/s ICA Mid EDV 17.2 cm/sRight Vertebral Vertebral PSV 35.4 cm/s Vertebral EDV 12.7 cm/sRight Subclavian Subclavian PSV 122 cm/s Left CCA Dist CCA Dist PSV 91.9 cm/s CCA Dist EDV 21.6 cm/sLeft CCA Mid CCA Mid PSV 95.2 cm/s CCA Mid EDV 20.5 cm/sLeft CCA Prox CCA Prox PSV 98.5 cm/s CCA Prox EDV 20.5 cm/sLeft ECA Prox ECA Prox PSV 116 cm/s ECA Prox EDV 13.8 cm/sLeft ICA Dist ICA Dist PSV 76.8 cm/s ICA Dist EDV 23.3 cm/sLeft ICA Mid ICA Mid PSV 97.9 cm/s ICA Mid EDV 33.2 cm/sLeft Vertebral Vertebral PSV 99.6 cm/s Vertebral EDV 29.3 cm/sLeft Subclavian Subclavian PSV 100 cm/s Right ICA Prox ICA Prox PSV 150 cm/s ICA Prox EDV 45 cm/sLeft ICA Prox ICA Prox PSV 147 cm/s ICA Prox EDV 29 cm/sRight ICA/CCA Ratio ICA/CCA PSV 1.96 Left ICA/CCA Ratio ICA/CCA PSV 1.54 Signed 07/06/2020 12:18 Hanna Thomas MD, RPVI [place] Esophagram 2020-06 Hm Interface, Radiology Carmichael Single Contrast -29 Results Incoming - M ethodist 17:55:4 07/04/2020 5:58 PM 7 CDT EXAMINATION: [place] ESOPHAGRAM SINGLE CONTRASTCLINICAL HISTORY: Dysphagia gastric lymphomaCOMPARISON: None.Fluoroscopy was used; the reference air kerma for the procedure was 45.36 mGy.FINDINGS: The patient swallowed barium without difficulty. The esophagus demonstrates normal motility. There is mild narrowing of the distal esophagus to the stomach for a length of about 5.5 cm. The esophagus is 10 mm wide along its entire length. There is no evidence of gastroesophageal reflux. IMPRESSION:Long distal esophageal stricture.[id number] EEG (routine) 2020-06 EEG AWAKE AND DROWSY Date of Service: 07/03/2020 Met hodist 18:23:2 Awake Recording: The 4 occipital dominant rhythm is 10 Hz. 18-22 Hz activity is present in all regions. Sleep Recording: No sleep was recorded. Hyperventilation: Not performed. Photic Stimulation: Not performed. Impression The background activity is within the range of normal variation. No lateralized or epileptiform activity was recorded. ICD-10 Code: R569 MRI Brain W Wo 2020-06 [facility], [facility] Contrast - Results Incoming - Method ist 22:01:4 07/02/2020 10:04 PM 5 CDT EXAMINATION: MRI BRAIN W WO CONTRASTCLINICAL HISTORY: hx dlbcl fluent aphasia rule out stroke vs metsCOMPARISON: CT head July 02, 2020 and MRI brain May 21, 2020Findings:Age-related volume loss.Scattered small T2/3 hyperintensities of the periventricular and deep white matter, nonspecific and most commonly seen with mild chronic microvascular ischemic changes. Chronic infarct at the right inferior cerebellum. Chronic infarct at the right caudate nucleus. Resolved ring-enhancing lesion at the right caudate nucleus body, likely related to evolving infarct.No intracranial hemorrhage, acute ischemia, extra-axial fluid collections or parenchymal mass lesions. No hydrocephalus. 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 rule out stroke vs metsCOMPARISON: CTA neck May 20, 2020.TECHNIQUE:Neck MRA using 2D and 3D [id number]-vq-aoxcuo technique with multi-planar MIP and 3D reconstruction.High-resolu tion sagittal T1 Cube with fat saturation sequence for dissection was performed.FINDINGS:There is no significant stenosis of the common or external carotid arteries.There is atherosclerotic disease with about 50% narrowing of the right carotid bulb/proximal ICA according to the NASCET criteria.There is atherosclerotic disease with about a similar degree of roughly 30% narrowing of the left carotid bulb/proximal ICA according to the NASCET criteria.The left vertebral artery is dominant as the right side is congenitally hypoplastic with only a faint amount of flow-related enhancement that is loss within the V3 segment likely from in plane flow phenomenon.IMPRESSION:.1. 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 There is ongoing concern for superimposed high-grade stenosis of the right vertebral artery CTA is recommended.2. 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 No aneurysms or measurable stenosis identified. The major branches of the anterior circulation are patent without luminal irregularity.The major branches of the posterior circulation are patent without luminal irregularity. No basilar tip aneurysms identified. Normal flow is seen at the left V4 segment without significant stenosis. No flow is seen at the right V4 segmentIMPRESSION:No flow at the right V4 segment, could be related to age-indeterminate occlusion. The remaining [place] has normal flow without significant stenosis or vascular malformation.[id number] CT Head Wo 2020-06 Interface, Radiology Replaced by [facility] Contrast -27 Results Incoming - Method ist 18:28:1 07/02/2020 6:31 PM 9 CDT EXAMINATION: CT HEAD WO CONTRASTCOMPARISON: May 20LINICAL HISTORY Dizziness non-specific. TECHNIQUE: Non-contrast CT scan of the head with thin-section contiguous transaxial images from the skull base to the vertex. CT scans are performed using radiation dose reduction techniques. Technical factors are evaluated and adjusted to ensure appropriate moderation of exposure. Automated dose management technology is applied to adjust radiation exposure while achieving a highly diagnostic quality image.FINDINGS:Nonenhanced emergency cranial CT was performed at approximately 1815 hours.There is ventricular and sulcal dilatation consistent with generalized atrophy.There is chronic right cerebellar infarction with volume loss.There are mild chronic nonspecific microvascular ischemic changes in the cerebral and brainstem.There is no extra-axial mass or fluid collection.Bone settings demonstrate the calvarium to be intact.There are no interval changesIMPRESSION:Stable involutional changes.Stable chronic right cerebellar infarct with volume loss.No acute [id number] PET/CT Skull Base 2020-05 Interface, Radiology [place] [facility] Thigh -25 Results Incoming - Meth odist 11:26:2 05/30/2020 11:29 AM 4 CDT PROCEDURE: PET CT SKULL BASE TO MID THIGHINDICATION: Restaging lymphoma. Subsequent treatment strategy. TECHNIQUE: Blood glucose measured at the time of injection was 107 mg/dL. The patient was then injected with 9.4 mCi of 18F-FDG, IV. Approximately one hour later, PET images were acquired from the skull base to the mid thighs. Corresponding, low dose, non-contrast CT scanning was performed as part of the attenuation correction process. Automated dose exposure control was utilized.COMPARISON: PET/CT scan 04/10/2020, CT scan of the chest, abdomen, and pelvis 05/22/2020.FINDINGS: Head and neck: No suspicious brain uptake. Physiologic uptake in the sinuses, orbits, nasopharynx, and oropharynx. Uptake by the larynx is normal. No suspicious neck lymph node uptake. Chest: No abnormal mediastinal, hilar, or axillary lymph node uptake. No suspicious pulmonary uptake. Subcentimeter nodules in both lungs are unchanged from prior imaging and remain without abnormal uptake. Mild uptake remains in the lower esophagus, at the GE junction, with a maximum SUV of 3.2. It previously measured 34.8. New uptake more proximally in the esophagus may be inflammatory. The maximum SUV is 4.8. Background mediastinal uptake demonstrates an SUV of 2.5. Abdomen: Physiologic uptake in the stomach, spleen, pancreas, liver, and adrenal glands. Previously described gastric uptake has resolved. No abnormal retroperitoneal or mesenteric lymph node uptake. Physiologic bowel uptake. Small bowel feeding tube in the left upper quadrant. Pelvis: Physiologic bowel uptake. No abnormal pelvic lymph node uptake. Review of the osseous structures demonstrates no suspicious uptake. IMPRESSION: 1. Near-complete interval metabolic response. Mild uptake that remains at the GE junction is probably inflammatory. Technically, the Deauville score is 3.2. New uptake more proximally in the lower esophagus is probably inflammatory, as it was without abnormal uptake on the prior study.3. Stable subcentimeter pulmonary nodules remain without abnormal uptake, but should be followed. [facility]-[id number] Transthoracic 2020-05 Interface, Radiology Replaced by [facility] Echocardiogram -18 Results In - 05/23/2020 [place] Complete, (w 18:05:0 6:06 PM CDTFormatting of Contrast, Strain 0 this note might be and 3D if needed) different from the original. Echocardiography Report [address] [place] [address] Pat.Name: AUGUSTIN CORDOBA JR Pat.ID: [id number] .Date: 05/23/2020 Refer.: AUDREY POWELL MDExsanta Time: 3:01:00 PM Study Type:Routine Echo Height: 73in Weight: 173lb BSA: 2.02 m2 Age: 6 1945,74Y Sex: MALE BP: 108/65 HR: 54 bpm Sonogrphr: CONNIE Wilhelm Pat. Stat.:Inpatient Room: VE3057-B Study Status:Final Echo Event ID:[id number] Order ID: [id number] Reason for Study:Stroke History / Clinical:Diabetes, HypertensionProcedures: 2D Echo, Colorflow Doppler, Portable, Intravenous LumasonContrastRace: C SUMMARY:-------- --Normal biventricular chamber size and systolic functionNo hemodynamically significant valvular pathologies. FIND INGS: LV: LV size is normal. LV EF is normal. Overall wall motion is normal. Estimated EF is 60-64%.RV: RV size is normal. RV systolic function is normal.LA: LA size is normal.RA: RA volume is difficult to assess.AO: Aortic root diameter is upper limits of normal in size.JONN: No pericardial effusion.SVn: Normal collapse of IVC during inspiration is consistent with normal RA pressure.AV: Mild thickening of AV leaflets. Focal calcification of AV leaflets. MV: No structural MV abnormalities noted.PV: Pulmonic valve not well seen. A trace of pulmonic regurgitation. TV: Tricuspid valve not well seen.Jeffery: LV relaxation is impaired. LV filling pressure is normal.Other: Insufficient TR jet to estimate PA systolic pressure. MEASURE MENTS: 2DParasternal Long [place] Ao An 3.1 cm LVPWd 0.9 cm Ao Rtd 4.5 cm Index 2.2 cm/m2 LA Ds 3.6 cm IVSd 0.9 cm RWT 0.4 LVIDd 4.9 cm Index 2.4 cm/m2 LV Mass 156.4 g (122-174) LVIDs 3.3 cm LVM Index 77.4 g/m2 LV%fs 32.7 % LVOT 2.3 cm LA Sng Plane LA Area 14.6 cm2 (8.8-23.4) LA Vol 39.9 ml Index 19.8 ml/m2 LA LngAx 4.4 cm LVOT LVOT Area 4.3 cm2 DOPPLERLVOT Stroke Vol & Cardiac Out LVOT TVI 22.9 cm HR 54 bpm LVOT LVOT SV 99.2 ml LVOT CO 5.4 l/min SVi 49.1 ml/m2 LVOT CI 2.7 l/m/m2 Signed 05/23/2020 06:[address] Chest W 2020- [facility], Radiology Replaced by [facility] Contrast Abdomen W -17 [facility]ly [facility] - [place] Contrast Pelvis W 16:37:3 05/22/2020 4:40 PM Contrast 1 CDT EXAMINATION: CT CHEST W CONTRAST ABDOMEN W CONTRAST PELVIS W CONTRASTCLINICAL HISTORY: abd pain gen acuteTECHNIQUE: Multiple axial images of the chest, abdomen, and pelvis were acquired after the administration of intravenous iodinated contrast. CT imaging was performed with iterative reconstruction technique and/or automated exposure control to reduce radiation dose.COMPARISON: PET/CT from April 10, 2020FINDINGS:CHEST:Lungs and airways: There are multiple unchanged pulmonary nodules, for example mixed attenuation, predominantly solid nodule in the lateral right upper lung on image 28 measuring 5 mm, groundglass nodule along the right minor fissure on image 46 measuring 8 mm, subpleural lingular nodule on image 66 measuring 7 mm, and subpleural left lower lobe nodule on image 88 measuring 7 mm. No acute airspace disease. Pleura: No pleural effusion or pneumothorax.Mediastinum and lymph nodes: No lymphadenopathy. Cardiovascular: Port right chest wall with catheter tip terminating in the mid SVC. Heavy coronary artery, mild aortic valve leaflet, and additional scattered vascular calcifications. The ascending aorta is at the upper limits of normal in diameter, measuring 3.8 cm.ABDOMEN:Liver: No suspicious hepatic lesions.Gallbladder: The gallbladder is normal.Spleen: The spleen is not enlarged.Pancreas: The pancreas is unremarkable.Adrenal Glands: The adrenal glands are unremarkable.Kidneys: Nonobstructing right nephrolithiasis. Partially exophytic left lower pole cyst measures 1.9 cm. Mild left renal cortical scarring.Vascular: Heavy aortic and branch vessel atherosclerosis.Nodes: Upper abdominal lymphadenopathy has decreased. 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 Irregular shape precludes quantitative comparison. Percutaneous jejunostomy tube is in place. A few colonic diverticula are noted, but there is no evidence of diverticulitis. No bowel obstruction or acute inflammatory changes. The appendix is small but otherwise normal.Ascites/fluid collections: No pneumoperitoneum, ascites, or organized fluid collections.PELVIS:Central prostatic calcifications. Prostatomegaly. There are bladder is incompletely distended and not well evaluated. MUSCULOSKELETAL: Moderate fat-containing left inguinal hernia. Mild bilateral gynecomastia. Scattered degenerative osseous changes. 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 Recommend attention at follow-up.3.Extensive atherosclerosis. Ascending aorta is at the upper limits of normal in diameter, measuring 3.8 cm.4.Nonobstructing right nephrolithiasis.5.No evidence of an acute abdominopelvic inflammatory process.[id number]-[id number] ECG 12 lead 2020-05-22 04:33:30 Test Item Value Reference Range Interpretation Comme nts Ventricular rate (test code = 253) 64 Atrial rate (test code = 255) 64 [place] interval (test code = 266) 158 QRSD interval (test code = 260) 80 QT interval (test code = 264) 442 QTC interval (test code = 265) 455 P axis 1 (test code = 267) 65 QRS axis 1 (test code = 268) -24 T wave axis (test code = 270) 20 EKG impression (test code = 273) Sinus rhythm with occasional reese ture ventricular complexes-Otherwise normal ECG-- [facility] Fluoroscopy Of [id number] 15:19:00Hm Interface, Radiology Results 05/21/2020 3:22 PM CDT EXAMINATION: FL FLUOROSCOPY OF TUBE HISTORY: 74 years old Male. Jejunostomy tube leaking evaluate for dislodgement or malposition.COMPARISON: Jejunostomy catheter exchange fluoroscopic images 05/23/2020TECHNIQUE/FINDINGS: Truck Jumper image of the upper abdomen was obtained. Patient's indwelling jejunostomy catheter was injected with 60 mL Omnipaque contrast. Multiple fluoroscopic and radiographic images were obtained in different obliquities. The tip of the catheter is within thejejunum and opacifies jejunal loops normally. No evidence of contrast extravasation. After a momentary pause, mild retrograde reflux of contrast along the catheter, within the jejunum is noted. Total fluoroscopy time 0.3 minutes. 25 images.IMPRESSION: 1. Appropriate positioning of percutaneous jejunostomy catheter.[id number] [facility] AliceistI Brain W [id number] 14:42:34Hm Interface, Radiology Results 05/21/2020 2:45 PM CDTFormatting of this note might be di fferent from the original.EXAMINATION: MRI BRAIN W CONTRASTCLINICAL HISTORY: gastric lymphoma - rule out metsCOMPARISON: MRI brain from earlier today without contrast with history of evaluate for stroke.. CT brain from yesterday.FINDINGS:There is a small area of restricted diffusion and increased T1 signal in the upper right caudate nucleus with mild enhancement in these areas.There is no abnormalenhancement in the rest of the brain or extra-axial region.IMPRESSION:Small area of nonspecific enhancement in the upper right caudate nucleus where there is some restricted diffusion and increased T1 signal on the noncontrasted MRI exam. This could be from subacute infarct with a tiny amount of hemorrhage or calcification. I cannot entirely exclude metastatic disease in this [id number] [facility]i [facility] Wo Contrast 2020-05-21 08:12:17Hm Interface, Radiology Results 05/21/2020 8:15 AM CDT EXAMINATION: MRI BRAIN WO CONTRASTCLINICAL HISTORY: Neuro deficit acute stroke suspected. Follow-upCOMPARISON: CT brain from yesterday.TECHNIQUE: Multiplanar and multisequence MRI imaging of the brain was obtained without contrast.FINDINGS:There is a tiny recent stroke in the right frontal periventricular white matter along the anterior lateral ventricle. There is no evidence of significant mass effect or evidence of recent hemorrhage.There is nonspecific enlargement of the ventricles, sulci and cisterns and white matter changes. There is old infarcts in the basal ganglia and in the cerebellum.No acute findings are seen in the orbits, sinuses or mastoid air cell region. There are small polyps in the maxillary sinuses. The nasal septum is deviated.IMPRESSION:Tiny recent stroke in the right frontal white matter.[facility] NORMANL-[id number] MethodistUrine [id number] 02:49:16 Test Item Value Reference Range Interpretation Comments Urine culture (test SEE COMMENT Bacteriu laura screen code = [id number]) negative. [place] MethodistCTA Neck W Wo [id number] 19:21:09Hm Interface, Radiology Results Incoming 05/20/2020 7:24 PM CDT Exam: Cervical CT angiogramHistory: CVA, rule out expressive aphasiaComparison studies: CT head same day.Technique: Axial images were obtained through the cervical region during the injection of intravenous contrast. Multiplanar, maximum intensity projection (MIP), and volumerendered reconstructions were created on the 3-D workstation.Automated exposure control for dose reduction.Intravenous contrast: Yes.Complications: NoneFINDINGS: If present, stenosis of the carotid bulbs is measured based on NASCET criteria, i.e. area of maximal stenosis compared to the cervical ICA d istal to the bulb.Cervical CTA:Aortic arch: Patent, no significant stenosis. Common Carotid arteries: Patent, no significant stenosis. Carotid Bulbs:Atherosclerotic changes results in 45-65% stenosis on the right and less than 30% stenosis on the left. Internal Carotid arteries: Patent, no significant stenosis. Vertebral arteries: Diminutive right vertebral artery with nonopacification of the V3 or proximal V4 segment. The left vertebral artery is dominant without significant stenosis. Normal variants: Vertebral arteries: Dominant left. Cervical spine:.... IMPRESSION:Cervical CTA:1. Moderate stenosis at the right carotid bulb2. Diminutive right vertebral artery with nonopacification of the distalV3 segment or intracranial V4 segment. The remaining neck arteries shows no significant stenosisHouston MethodistCTA Head W Wo [id number] 19:17:52Hm Interface, Radiology Results 05/20/2020 7:20 PM CDT EXAMINATION: CT ANGIOGRAM HEAD W WO CONTRASTCLINICAL HISTORY: expressive aphasiaCOMPARISON: NoneTECHNIQUE: Imaging of the intracranial circulation was obtained from the skull base to the vertex during the arterial phase of enhancement. Postprocessing was performed with MIP multiplanar and 3D reconstructed images. CT imaging was performed with iterative reconstruction technique and/or automated exposure control to reduce radiation dose.FINDINGS:Mild arteriosclerosis of portions of the cavernous and paraclinoid internal carotid arteries without stenosis. The major branches of the anterior, middle, and posterior cerebral arteries appear patent without significant narrowing. Patent bilateral posterior communicating arteries. Nonfilling of the proximal V4 segment of the right vertebral artery. The vertebrobasilar system is otherwise patent without significant stenosis. Noaneurysm identified.IMPRESSION:Nonfilling of the markedly diminutive proximal V4 segment of the right vertebral artery, favored to be chronic. The remaining major branches of the anterior and posteriorarterial circulations of the brain appear patent without significant stenosis.[id number] MethodistEC ED Preliminary Interpretation - Not an [id number] 18:45:21 Test Item Value Reference Range Interpretation Comments DELICIA (test code = DELICIA) Herson Mera MD 06/19/2020 9:45 [facility] ED Preliminary Interpretation - Not an OrderPerformed by: Herson Mera MDAuthorized by: Herson Mera MD ECG reviewed by ED Physician in the absence of a home health rn: yes Interpretation: Interpretation: abnormal Rate: ECG rate: 64 ECG rate assessment: normal Rhythm: Rhythm: sinus rhythm QRS: QRS axis: Normal QRS intervals: NormalST segments: ST segments: NormalOther findings: Other findings: prolonged qTc interval Lab Interpretation Abnormal (test code = 99707-0) Amol MethodistIR Jejunal Catheter Eval/Possible [id number] 08:07:28Hm Interface, Radiology Results 05/14/2020 8:10 AM CST Performing RadiologistJerry Alvares MD AssistantsNone Anesthesia TypeNo sedation. IndicationBroken jejunostomy tube.ProcedureJejunostomy catheter exchange TechniqueWritten info rmed consent was obtained prior to the procedure. The patient was placed in supine position on the procedure table. The abdomen and indwelling jejunostomy catheter were sterilely prepared and draped inthe routine manner. A stiff 0.035 inch angled Glidewire was advanced through the jejunostomy catheter successfully into the jejunum. The existing jejunostomy catheter balloon was deflated and it was removed over the wire. A new 14 [place] jejunostomy tube was advanced over the wire, and balloon inflated with 7 ml of sterile water. Contrast injected through the tube promptly opacified jejunal ports. The patient tolerated the procedure well. Radiation Dose4 mGyComplicationsNone Specimens RemovedNone Est imated Blood LossLess than 1 mL Blood/Blood Products AdministeredNone Grafts/ImplantsAs described inthe above report Impression: Successful fluoroscopic guided exchange of the indwelling jejunostomy catheter for a new 14 [place]an jejunostomy catheter as detailed above. The catheter is ready for use.[facility] -[id number] MethodistMiscellaneous referral [id number] 13:50:46 Test Item Value Reference Range Interpretation Comments [facility] [place] [facility] [employer] (test code = [id number]) [facility] [place] see note Oncology FISH result (test MYCIndication: LBCL; code = 1730) NHLSample: FFPE tumor block [id number] 9Method of Analysis: [facility] Oncology FISH M YC RESULTS:NORMAL: 8q24 (MYC) - Gene rearrangement N OT detected INTERP RETATION :Normal FISH re sults for the MYC pro be set. At least 200 [address] terphase cells from the patient's sampl e were analyzed for hybridization w ith the LSI MYC dual color,breakapar t probe set. The vast m ajority of cells contai juliane two fusion signals, thus there was no ev idence of a translocat ionor any other rearr angement involving the M YC gene on chromosome 8 q24. ISCN: nuc sweetie(MYCx2)[200] Test(s) performed by:[facility] [id number] [address] DELICIA (test code [facility] Genetics = DELICIA) [facility]-[id number] [place] MethodistXR Chest 1 [id number] 13:11:31Hm Interface, Radiology Results Incoming 04/21/2020 1:14 PM CST EXAMINATION: XR CHEST 1 PORTABLECLINICAL HISTORY: 74 years Male ralesCOMPARISON: 04/19/2020IMPRESSION:1.Right jugular chest port in place.2.Heart size and pulmonary vasculature are normal. 3.Lungs are clear. No pleural effusion or pneumothorax noted. [facility] MethodistXR Abdomen 1 Portable 2020-04-21 12:37:06Hm Interface, Radiology Results Incoming - 04/21/2020 12:40 PM CST Examination: XR ABDOMEN 1 PORTABLEClinical history: "Distension" Comparison: 04/19/2020 IMPRESSION: The bowel gas pattern is nonspecific. There is no evidence of acute disease within the imaged portions of both lung bases. The imaged bones appearto be unchanged. Percutaneous gastrostomy tube is seen in the left upper quadrant. [facility]jon[facility]mon[facility]] MethodistTransthoracic Echocardiogram Complete, (w Contrast, Strain and 3D if needed)2020-04-20 14:37:00Interface, Radiology Results In - 04/20/2020 2:38 PM CSTFormatting of this note might be different f rom the original. Echocardiography Report [address], [place] [address] Pat.Name: AUGUSTIN CORDOBA JR Daiana.ID: [id number] .Date: 04/20/2020 Refer.MD: ANTOLIN WILBURN MD Exam Time: 10:10:00 AM Study Type:Routine Echo Height: 73in Weight: 190.6lb BSA: 2.11 m2 Age: 6 1945,74Y Sex: MALE BP: 103/55 HR: 68 bpm Sonogrphr: markus Maria Stat.:Inpatient Room: W1414 Study Status:Final Echo Event ID:[id number] Order ID: [id number] Reason for Study:Assess EF for chemotherapyHistory/ Clinical:Diabetes, HypertensionProcedures: 2D Echo, Colorflow Doppler, Portable, Intravenous DefinityContrastRace: C SUMMARY: LV EF is normal.Estimated EF is 60-64%.RV systolic function is normal.Normaldiastolic function adjusted for age; normal LV fillingpressures. F INDINGS: LV: LV size is normal. LV EF is normal. Overall wall motion is normal. Estimated EF is 60-64%.RV: RV size is normal. RV systolic function is normal.LA: LA volume is difficult to assess.RA: RA size is normal.AO: Aortic root diameter is normal.JONN: No pericardial effusion.AV: Focal calcification of AV leaflets.MV: No structural MV abnormalities noted.PV: No structural PV abnormalities noted.TV: No structural TV abnormalities noted.Jeffery: Normal diastolic function adjusted for age; normalLV filling pressures.Other: Insufficient TR jet to estimate PA systolic pressure.-------- MEASUREMENTS: 2DParasternal Long [place] Ao An 2.7 cm LVPWd 1.1 cm Ao Rtd 4.1 cm Index 1.9 cm/m2 LA Ds 4.5 cm IVSd 0.7 cm RWT 0.4 LVIDd 5.4 cm Index 2.6 cm/m2 LV Mass 191.1 g (122-174) LVIDs 3.1 cm LVM Index 90.6 g/m2 LV%fs 42.6 % LVOT 2.3 cm LVOT LVOT Area 4.2 cm2 DOPPLERLVOT Stroke Vol & Cardiac Out LVOT TVI 29.5 cm HR 65 bpm LVOT LVOT SV 123.6 ml LVOT CO 8 l/min SVi 58.6 ml/m2 LVOT CI 3.8 l/m/m2 Signed 04/20/2020 02:37 PMMohammed Susana Chapin MethodistCytology (non-gynecological) request 2020-04-18 14:28:48 Test Item Value Reference Range Interpretation Comments Case number (test code = [id number]) Cytology See link below for (non-gynecological) PDF Lab Report report (test code = 1178) Result status (test code This is Final Report = [id number]) for [id number] [place] MethodistSurgical pathology [id number] 10:52:45 Test Item Value Reference Range Interpretation Comments Case number (test code = [id number]) Surgical pathology See link below for report (test code = PDF Lab Report 2255) Result status (test code This is Final Report = [id number]) for [id number] [place] MethodistIR Port [id number] 16:39:20Hm Interface, Radiology Results Incoming - 04/12/2020 4:42 PM CSTFormatting of this note might be di fferent from the original.Performing Radiologist:Harrison King MDAssistants:Ronnie Garcia Type:Moderate sedation was administered by the procedure nurse and monitored intraservice [id number] by the procedure physician for 33 minutes. Lidocaine 1% and lidocaine used for local anesthetic. 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 Status post subcutaneous right chest port placement. Procedure:Subcutaneous right chest port placement. Technique:Written informed consent was obtained prior to the procedure. All elements of maximal sterile barrier technique were followed. Using ultrasound guidance, the right internal jugular vein was punctured with a 21-gauge needle allowing placement of a 0.018 inch guidewire. The needle was removed and a micropuncture sheath was then placed over the guidewire. Under ultrasound guidance, documentation of vessel patency, needle access with permanent recording, and reporting are performed followed by placement of a sheath in the right internal jugular vein. A subcutaneous pocket was then created at the right infraclavicular fossa using sharp and blunt dissection. A tunnel was made between the pocket and the venotomy site, through which the 6.6-Anguillan port catheter was placed. The venotomy was sequentially dilated to accept an 7-Anguillan peel-away sheath, through which the leading edge of the catheter was advanced under fluoroscopic guidance. The trailing end of the catheter was trimmed to the appropriate length and attached to a low profile Angiodynamics Smart Port CT. Following irrigation of the pocket with dilute antibiotic solution, the port was placed within the pocket. The port incision was closed using a deep layer of interrupted 3-0 Vicryl suture, 4-0 Monocryl running subcuticular suture, and Dermabond. The small venotomy incision was closed using Dermabond. The port was accessed and found to flush and aspirate freely.The port was then packed using heparin. A post placement fluoroscopic imaging of the chest was then obtained. There were no complications. Radiation Dose:Ka,r = 16 mGy Complications:None. Specimens Removed:None. Estimated Blood Loss:Less than 2 mL. Blood/Blood Products Administered:None. Grafts/Implants:As described in the above report. Impression: Successful fluoroscopic-guided placement of a subcutaneous right chest port via the right internal jugular vein. The catheter tip lies at the right atrium /superior vena cava junction and is ready for use. [facility]-[id number] and approved by residential tech/fellow: Donna Snell, HARRISON KING MD, personally reviewed the images and resident's/fellow's findings and agree with the final report.[id number] 12:23:00Lincoln Howe CRNA 04/11/2020 12:24 [address]MA[address] Location: OR Performed by: resident/CRNAAnesthesiologist: Aaron Aldridge Jr., MDResident/RATTLING MACHINE TENDER/AA: Lincoln Howe CRNAAuthorized by: Aaron Aldridge Jr., MD Urgency: ElectiveDifficult Airway: No Preoxygenated with 100% O2: YesC-spine Precautions Maintained Throughout: No Mask Ventilation: Easy maskFinal Airway Type: Endotracheal airwayFinal Endotracheal Airway: ETTCuffed: Yes Technique Used: Video laryngoscopyInsertion Site: OralBlade Type: MacintoshLaryngoscope Blade/Videolaryngoscope Blade Size: 3ETT Size (mm):8.0Cuff at minimum occlusion pressure: Yes Measured from: TeethPlacement Verified by: CO2 detection, direct visualization and equal breath sounds Laryngoscopic view: Grade I - full view of glottisRapid Sequence Induction (RSI): No Modified RSI: No Number of Attempts at Approach: 2 DLX1 with topete 2, grade 3 view. DLX1 with mac 3 LU, grade 1 view. Glottic opening very anterior.Blanco MethodAt[facility] Health [facility] Chest Abdomen Pelvis External [id number] 15:05:20This exam was not acquired at a [facility] facility and has not been interpreted by a [facility] Provider. The exam was imported into our imaging system.Amol Valdes
[2020-07-22] MEDS ORDERED: ONDANSETRON 4 MG/2 ML VIAL ONE (09:52)
[2020-07-22] MEDS ORDERED: FENTANYL CITR 100 MCG/2 ML ONE (09:52)
--- NOTE | 2020-07-22 10:04 | RAD REPORT ---
EXAM DESCRIPTION: CT - Abdomen Pelvis W Contrast - 07/22/2020 9:52 am CLINICAL HISTORY: Abdominal pain COMPARISON: July 18, 2020 PET scan TECHNIQUE: Computed axial tomography of the abdomen pelvis was obtained. 100 cc Isovue-300 was admin istered intravenously. Oral contrast was not requested which limits evaluation of bowel. All CT scans are performed using dose optimization technique as appropriate and may include automated exposure control or mA/KV adjustment according to patient size. FINDINGS: The wall of the distal esophagus appears thickened. The liver, spleen, pancreas, adrenals appear unremarkable. Small left renal cyst. Nonobstructing righ t renal calculus. There is no evidence of diverticulitis. Trace amount of free fluid. The prostate gland is mildly to moderately enlarged containing calcification. Small inguinal hernias contain fat Mild to moderate anterior subluxation L5 on S1. Spondylolysis L5 IMPRESSION: Thickening of the wall of the distal esophagus may indicate neoplasm, inflammation or in complete distention
[2020-07-22 10:28] LABS: Absolute Lymphocytes (CBC) 0.9 K/uL (0.7-4.9); Basophils % 1.8 % (0-1.3); Hematocrit 26.5 % (39.6-49.0); MPV 7.7 fL (7.6-11.3)
[2020-07-22 10:35] LABS: ALT/SGPT 8 U/L (12-78); AST/SGOT 12 U/L (15-37); Albumin 2.3 g/dL (3.4-5.0); Alkaline Phosphatase 39 U/L (45-117); BUN Blood Urea Nitrogen 12 mg/dL (7-18); Bicarbonate 25 mmol/L (21-32); Bilirubin Direct 0.1 mg/dL (0-0.2); Bilirubin Total 0.7 mg/dL (0.2-1.0); Glucose Level 101 mg/dL (74-106); Lipase 34 U/L (73-393); Protein, Total 5.5 g/dL (6.4-8.2); Sodium Level 138 mmol/L (136-145)
[2020-07-22] MEDS ORDERED: POTASSIUM CL SA 10 MEQ TAB PO ONE (11:27)
[2020-07-22] MEDS ORDERED: NA CHLORIDE 0.9% 500 ML ONE (11:28)
[2020-07-22 11:38] LABS: Urine Blood Trace-intact (Negative); Urine Glucose Negative (Negative); Urine Protein Negative (Negative); Urine pH 6.5 (5.0-7.0)
--- NOTE | 2020-07-22 11:39 | EDPHYS ---
Physician Documentation [facility] Name: Devaughn Bishop Jr Age: 74 yrs Sex: Male : 1945 Arrival Date: 07/22/2020 Time: 08:34 Bed 13 Private MD: ED Physician Litzy Horne HPI: 07/22 10:05 This 74 yrs old Male presents to ER via Wheelchair with complaints of kb Abdominal Pain. 10:05 The patient presents with abdominal pain that is diffuse. Onset: The symptoms/episode kb began/occurred 1 month(s) ago. The symptoms do not radiate. Associated signs and symptoms: none. The symptoms are described as constant. Modifying factors: The symptoms are alleviated by nothing, the symptoms are aggravated by nothing. Severity of pain: At its worst the pain was moderate in the emergency department the pain is unchanged. The patient has not experienced similar symptoms in the past. The patient has not recently seen a physician. Pt reports abd pain that started a month or more ago. States the pain has become worse. Has told his oncologist about it multiple times without investigation into the cause. Pain was worse last night and he hasn't had an appetite for a few days . Historical: - Allergies: 08:48 PENICILLINS; sv - Immunization history:: Client reports having NOT received the Covid vaccine. - Social history:: Smoking status: Patient denies any tobacco usage or history of. ROS: 10:04 Constitutional: Negative for fever, chills, and weight loss. kb 10:04 Abdomen/GI: Positive for abdominal pain, Negative for nausea, vomiting, and diarrhea. 10:04 All other systems are negative. Exam: 10:04 Constitutional: This is a well developed, well nourished patient who is awake, alert, kb and in no acute distress. Head/Face: Normocephalic, atraumatic. Cardiovascular: Regular rate and rhythm with a normal S1 and S2. No gallops, murmurs, or rubs. No pulse deficits. Respiratory: Respirations even and unlabored. No increased work of breathing, no retractions or nasal flaring. Skin: Warm, dry with normal turgor. Normal color. MS/ Extremity: Pulses equal, no cyanosis. Neurovascular intact. Full, normal range of motion. Neuro: Awake and alert, GCS 15, oriented to person, place, time, and situation. Moves all extremities. Normal gait. Psych: Awake, alert, with orientation to person, place and time. Behavior, mood, and affect are within normal limits. 10:04 Abdomen/GI: Inspection: abdomen appears normal, Bowel sounds: normal, in all quadrants, Palpation: soft, in all quadrants, mild abdominal tenderness, in all quadrants, moderate abdominal tenderness. Vital Signs: 08:48 BP 111 / 72; Pulse 86; Resp 18; Temp 98.4; Pulse Ox 99% ; Weight 74.84 kg; Height 6 ft. sv 1 in. (185.42 cm); 09:39 BP 120 / 75; Pulse 76; Resp 18; Pulse Ox 100% on R/A; tr6 12:04 BP 120 / 85; Pulse 72; Resp 18; Pulse Ox 98% on R/A; tr6 08:48 Body Mass Index 21.77 (74.84 kg, 185.42 cm) sv MDM: 09:10 Patient medically screened. kb 10:05 Data reviewed: vital signs, nurses notes. Data interpreted: Pulse oximetry: on room air kb is 100 %. Interpretation: normal. 11:02 Counseling: I had a detailed discussion with the patient and/or guardian regarding: the kb historical points, exam findings, and any diagnostic results supporting the discharge/admit diagnosis, lab results, radiology results, the need for outpatient follow up, a family practitioner, to return to the emergency department if symptoms worsen or persist or if there are any questions or concerns that arise at home. 07/22 09:16 Order name: Basic Metabolic Panel; Complete Time: 10:39 kb 07/22 09:16 Order name: CBC with Diff kb 07/22 09:16 Order name: Hepatic Function; Complete Time: 10:39 kb 07/22 09:16 Order name: Lipase; Complete Time: 10:39 kb 07/22 10:34 Order name: Manual Differential EDMS 07/22 11:38 Order name: Urine Dipstick-Ancillary; Complete Time: 11:39 EDMS 07/22 09:16 Order name: IV Saline Lock; Complete Time: 09:40 kb 07/22 09:16 Order name: Labs collected and sent; Complete Time: 09:40 kb 07/22 09:16 Order name: CT Abd/Pelvis - IV Contrast Only; Complete Time: 10:07 kb 07/22 09:46 Order name: Labs - recollect needed; Complete Time: 10:05 sv 07/22 11:10 Order name: Urine Dipstick-Ancillary (obtain specimen); Complete Time: 11:40 kb Administered Medications: 09:39 Drug: fentaNYL (PF) 25 mcg Route: IVP; Site: right wrist; tr6 10:06 Follow up: Response: No adverse reaction; Marked relief of symptoms; Pain is decreased tr6 09:39 Drug: Zofran (Ondansetron) 4 mg Route: IVP; Site: right wrist; tr6 10:06 Follow up: Response: No adverse reaction tr6 11:18 Drug: Potassium Chloride 40 mEq Route: PO; tr6 11:40 Follow up: Response: No adverse reaction tr6 11:18 Drug: NS 0.9% 500 ml Route: IV; Rate: bolus; Site: right wrist; tr6 11:40 Follow up: IV Status: Completed infusion; IV Intake: 500ml tr6 Disposition: 18:40 Co-signature as Attending Physician, Litzy Honre MD. ma2 Disposition: 07/22/20 11:38 Discharged to Home. Impression: Generalized abdominal pain. - Condition is Stable. - Discharge Instructions: Abdominal Pain, Adult, [id number]. - Prescriptions for Tramadol 50 mg Oral Tablet - take 1 tablet by ORAL route every 8 hours as needed; 12 tablet. - Medication Reconciliation Form, Thank You Letter, Antibiotic Education, Prescription Opioid Use form. - Follow up: Emergency Department; When: As needed; Reason: Worsening of condition. Follow up: Private Physician; When: 2 - 3 days; Reason: Recheck today's complaints, Continuance of care, Re-evaluation by your physician. Signatures: Dispatcher [employer] EDLA Oumou Munguia FNP-C FNP-Ckb Verde, Stephanie, RN RN sv Alzahri, Mohammad, MD MD ma2 Veronica Albarran RN RN tr6 Corrections: (The following items were deleted from the chart) 12:05 11:38 07/22/2020 11:38 Discharged to Home. Impression: Generalized abdominal pain. tr6 Condition is Stable. Forms are Medication Reconciliation Form, Thank You Letter, Antibiotic Education, Prescription Opioid Use. Follow up: Emergency Department; When: As needed; Reason: Worsening of condition. Follow up: Private Physician; When: 2 - 3 days; Reason: Recheck today's complaints, Continuance of care, Re-evaluation by your physician. kb
--- NOTE | 2020-07-22 11:39 | ER ---
Nurse's Notes [facility] Name: Devaughn Bishop Jr Age: 74 yrs Sex: Male : 1945 Arrival Date: 07/22/2020 Time: 08:34 Bed 13 Private MD: Diagnosis: Generalized abdominal pain Presentation: 07/22 08:46 Chief complaint: Patient states: diffuse abd pain since this weekend. Was on chemo but sv was stopped but is on radiation. Lymphoma. Coronavirus screen: Client denies travel out of the [place] in the last 14 days. At this time, the client does not indicate any symptoms associated with coronavirus-19. Ebola Screen: No symptoms or risks identified at this time. Risk Assessment: Do you want to hurt yourself or someone else? Patient reports no desire to harm self or others. Onset of symptoms was July 20, 2020. 08:46 Method Of Arrival: Wheelchair sv 08:46 Acuity: ZIYAD 3 sv 08:48 Initial Sepsis Screen: Does the patient meet any 2 criteria? No. Patient's initial sv sepsis screen is negative. Does the patient have a suspected source of infection? No. Patient's initial sepsis screen is negative. Triage Assessment: 09:40 General: Appears in no apparent distress. comfortable, well groomed, Behavior is calm, tr6 cooperative, appropriate for age. Pain: Complains of pain in throat. pt dx with esophageal cancer. GI: No deficits noted. Historical: - Allergies: 08:48 PENICILLINS; sv - Immunization history:: Client reports having NOT received the Covid vaccine. - Social history:: Smoking status: Patient denies any tobacco usage or history of. Screenin:40 Abuse screen: Denies threats or abuse. Denies injuries from another. Nutritional tr6 screening: No deficits noted. Tuberculosis screening: No symptoms or risk factors identified. Fall Risk None identified. Assessment: 09:40 General: Appears uncomfortable, well groomed, Behavior is calm, cooperative, tr6 appropriate for age. Pain: Complains of pain in c/o epigastric pain. Neuro: No deficits noted. Cardiovascular: No deficits noted. Respiratory: No deficits noted. GI: Reports upper abdominal pain, cramping. : No deficits noted. EENT: No deficits noted. Derm: No deficits noted. Musculoskeletal: No deficits noted. 09:41 GI: Bowel sounds Abd is soft and non tender X 4 quads. tr6 10:37 Reassessment: pt resting comfortably in bed. pt states that his pain is better than on tr6 arrival. 12:03 Reassessment: results reviewed with pt and pts at bedside by DIVISION ORDER ANALYST. pt and pts tr6 verbalized understanding. Vital Signs: 08:48 BP 111 / 72; Pulse 86; Resp 18; Temp 98.4; Pulse Ox 99% ; Weight 74.84 kg; Height 6 ft. sv 1 in. (185.42 cm); 09:39 BP 120 / 75; Pulse 76; Resp 18; Pulse Ox 100% on R/A; tr6 12:04 BP 120 / 85; Pulse 72; Resp 18; Pulse Ox 98% on R/A; tr6 08:48 Body Mass Index 21.77 (74.84 kg, 185.42 cm) sv ED Course: 08:34 Patient arrived in ED. mr 08:48 Triage completed. sv 08:48 Arm band placed on. sv 09:10 Oumou Munguia FNP-C is PHCP. kb 09:10 Litzy Horne MD is Attending Physician. kb 09:20 Veronica Albarran, SILVINO is Primary Nurse. tr6 09:20 Inserted saline lock: 20 gauge in right wrist, using aseptic technique. Blood collected.tr6 09:41 No provider procedures requiring assistance completed. tr6 09:42 Patient has correct armband on for positive identification. Bed in low position. Call tr6 light in reach. Side rails up X2. 09:52 CT Abd/Pelvis - IV Contrast Only In Process Unspecified. EDMS 12:04 IV discontinued, intact, bleeding controlled, No redness/swelling at site. Pressure tr6 dressing applied. Administered Medications: 09:39 Drug: fentaNYL (PF) 25 mcg Route: IVP; Site: right wrist; tr6 10:06 Follow up: Response: No adverse reaction; Marked relief of symptoms; Pain is decreased tr6 09:39 Drug: Zofran (Ondansetron) 4 mg Route: IVP; Site: right wrist; tr6 10:06 Follow up: Response: No adverse reaction tr6 11:18 Drug: Potassium Chloride 40 mEq Route: PO; tr6 11:40 Follow up: Response: No adverse reaction tr6 11:18 Drug: NS 0.9% 500 ml Route: IV; Rate: bolus; Site: right wrist; tr6 11:40 Follow up: IV Status: Completed infusion; IV Intake: 500ml tr6 Intake: 11:40 IV: 500ml; Total: 500ml. tr6 Outcome: 11:38 Discharge ordered by MD. laguna 12:03 Discharged to home ambulatory, with family, at bedside tr6 12:03 Condition: stable 12:03 Discharge instructions given to patient, family, significant other, Instructed on discharge instructions, follow up and referral plans. medication usage, safety practices, Demonstrated understanding of instructions, follow-up care, medications, Prescriptions given X 2. 12:05 Patient left the ED. tr6 Signatures: Dispatcher [employer] EDOumou Donovan, RAFA VENCES-Roxi Rodriguez, RN RN Ingris Hagen Tiffany, RN RN tr6 Corrections: (The following items were deleted from the chart) 08:50 08:48 Pulse 86bpm; Resp 18bpm; Pulse Ox 99%; Temp 98.4F; 74.84 kg; Height 6 ft. 1 in.; sv BMI: 21.7; sv
[2020-07-22 12:10] VITALS: TEMP 98.4
[2020-07-22 12:13] VITALS: BP 120/85; O2SAT 98
[2020-07-22 12:31] LABS: Platelet Estimate ADEQ
[2020-07-22 12:32] LABS: Blood Morphology Comment NOT SEEN (NOT SEEN)
== END 2020-07-22 12:05 | disposition home or self-care (01) ==
LOC: ER 08:31
DX: R10.84 Generalized abdominal pain (principal)
CPT/HCPCS: 85025; 80048; 36415; 80076; 81003; 83690; 74177; 96375; 96374; 99284; Q9967; J3010; J7040; J2405

== ENCOUNTER 2023-01-04 09:22 | Day surgery (SDC) | payer OTHER ==
--- NOTE | 2023-01-04 11:09 | RAD REPORT ---
EXAM DESCRIPTION: Vance Huggins And Lat (2 Views)01/04/2023 11:00 am CLINICAL HISTORY: Preop. Hypertension COMPARISON: 2021 FINDINGS: The lungs appear clear of acute infiltrate. The heart is normal size. Central venous catheter with its tip in the SVC IMPRESSION: No acute abnormalities displayed
[2023-01-04 11:22] LABS: Absolute Lymphocytes (CBC) 3.1 K/uL (0.7-4.9); Hematocrit 45.2 % (39.6-49.0); Lymphocytes % 31.2 % (15.3-44.8); MCV 88.7 fL (80-100); MPV 7.8 fL (7.6-11.3); Platelets 201 thou/uL (152-406)
[2023-01-04] MEDS ORDERED: Ringers Lactate 1,000 ML IV ONE (11:31)
[2023-01-04] MEDS ORDERED: dexAMETHasone 10 MG/ML VIAL ONE (12:11)
[2023-01-04] MEDS ORDERED: MIDAZOLAM HCL 2 MG/2 ML INJ ONE (12:11)
[2023-01-04] MEDS ORDERED: propofoL 200 MG/20 ML VIAL IV ONE (12:11)
[2023-01-04] MEDS ORDERED: ROCURONIUM 50 MG/5 ML VIAL IV ONE (12:11)
[2023-01-04] MEDS ORDERED: FENTANYL CITR 100 MCG/2 ML ONE (12:11)
[2023-01-04] MEDS ORDERED: LIDOCAINE 2% MPF 5 ML VIAL ONE (12:11)
[2023-01-04] MEDS ORDERED: KETOROLAC 30 MG/ML INJ ONE (12:11)
[2023-01-04] MEDS ORDERED: ONDANSETRON 4 MG/2 ML VIAL ONE ×2 (12:16→14:08)
[2023-01-04] MEDS ORDERED: CIPROFLOXACIN 400mg IV 400 MG/200 ML BAG IV ONE (12:22)
[2023-01-04] MEDS ORDERED: GLYCOPYRROLATE 0.2 MG/ML SYR ONE ×3 (12:55→13:22)
[2023-01-04] MEDS ORDERED: NEOSTIGMINE 1 MG/ML -10 ML VIAL ONE (13:22)
--- NOTE | 2023-01-04 13:25 | P.BOP ---
Preoperative diagnosis: tender Left inguinal hernia, non functional portacath Postoperative diagnosis: same Primary procedure: 1. Laparoscopic repair of tender Left inguinal hernia with mesh Secondary procedure: 2. Removal of portacath Bakery Technician: Karishma Null) Estimated blood loss: <20cc Specimen: intact portacath Findings: as above Anesthesia: General Complications: None Implants: 3d medium mesh Transferred to: Recovery Room Condition: Good
[2023-01-04] MEDS: HYDROMORPHONE HCL 1 MG/ML INJ ONE ×2 (14:04→14:13)
[2023-01-04 14:15] VITALS: TEMP 96.9
[2023-01-04] MEDS ORDERED: CODEINE 30MG/APAP 300MG TAB PO PRN (14:19)
[2023-01-04 14:53] VITALS: BP 149/69; O2SAT 93
--- NOTE | 2023-01-04 23:38 | OP ---
Date of Procedure: 01/04/2023 Surgeon: Scot Fraire MD Back Shoe Worker: Dr. Karishma Juarez. Preoperative Diagnoses: Tender left inguinal hernia, nonfunctional Port-A-Cath. Postoperative Diagnoses: Tender left inguinal hernia, nonfunctional Port-A-Cath. Procedures: 1.Laparoscopic repair of tender left inguinal hernia with mesh. 2.Removal of right upper chest Port-A-Cath. Estimated Blood Loss: Less than 20 cc. Specimen: Intact Port-A-Cath. Findings: As above. Anesthesia: General plus local. Complications: None. Implant: 3D mesh, medium. Indications: This is a case of a 77-year-old patient, who comes to us with 2 problems. He has a lef t inguinal hernia, increasing in size, giving him pain and discomfort, he wants that excised. He als o want to take this opportunity to remove the Port-A-Cath, he has been using more than a year. He wa s using that for a GI cancer. No more chemotherapy. He wants that removed. The benefits, alternati ves, and risks of laparoscopic repair of tender left inguinal hernia with mesh and removal of Port-A- Cath fully explained, which include, but not limited to infection, bleeding, damage to adjacent struc tures, anesthesia complication, recurrence, chronic pain, chronic numbness, PEs, DVTs, hematomas, ecc hymosis, AR, and even . He also understands this may not relieve any symptoms. He might need m ore than one surgical intervention. He also understands we will be using mesh in that region. Pros and cons of mesh were discussed with the patient. He signed a consent. Description Of Procedure: The patient was brought to the operating room and placed in supine positio n. Anesthesia was induced without complication. Abdomen and inguinal region were prepped and draped in usual sterile fashion, also the chest. At that moment, I proceeded then to place the patient in Trendelenburg position with left side up to make an incision in the infraumbilical region. Incision was carried down until we find the anterior rectus sheath, which opened on the left side. The muscle was retracted laterally to expose the posterior rectus sheath. The extraperitoneal space was gently developed with the help of blunt dissection and the Spacemaker balloon-tip trocar was placed in that area directed toward the pubis symphysis and inflated under direct visualization with the laparoscop e. After that, we deflated the balloon and removed it and then inflated and the extraperitoneal spac e was created. A 5 mm trocar was placed in the area of the pubis symphysis, another one intermediate betw een the first and the second one. The preperitoneal space was gently developed by exposing the infer ior epigastric vessels and keeping them anterior. Gibran's ligament was dissected laterally to the j unction with the iliac veins. The dissection continued inferiorly to the iliopubic tract avoiding da mage to the femoral branch of the genitofemoral nerve and lateral femoral cutaneous nerve. The cord structures were carefully skeletonized. The hernia was identified and retracted into the peritoneal cavity gently. At that moment, I proceeded then to introduce a 3D mesh medium size on the left side, aligned to cover direct and indirect spaces, and secured in place with SorbaFix lateral and superior to the iliopubic tract and inferomedial to the Gibran's ligament. After ensuring adequate hemostasi s, we proceeded then carefully to stop the insufflation and allowed the air to escape while we were h olding the mesh in place. The trocars were removed and then, the anterior rectus sheath was closed w ith the #1 Vicryl. 3-0 chromic was used to close the subcutaneous tissue and the skin with raina. Sponge count and instrument counts were correct. At that moment, we went to the left upper chest. The left upper chest was already prepped and draped in a sterile fashion. The incision was made at t he area of the Port-A-Cath. The Port-A-Cath was dissected free from the rest of the subcutaneous tis zurdo and then without resistant pull out and the catheter came back intact. Pressure was applied for about 15 minutes and also, we closed the area with a combination of 3-0 chromic and raina. Sponge count and instrument counts were correct. The patient tolerated the procedure well. The patient was sent to Recovery in stable condition. The patient was in Trendelenburg position for the Port-A-Cath session. SIERRA/KATJA Voice ID: [id number] Report ID: [id number]
--- NOTE | 2023-01-04 23:43 | DS ---
Date of Discharge: 01/04/2023 Diagnoses: Tender left inguinal hernia and nonfunctional Port-A-Cath. Procedure: Laparoscopic repair of tender left inguinal hernia with mesh and removal of Port-A-Cath. Condition: Stable. Disposition: Home. Activity: As tolerated. No heavy lifting. Plan: Follow up in my office in 1 week. Call for appointment [phone]. Keep area dry for 48 hours, then may shower. Keep raina intact. Cold compress of the left inguinal region for the next 24 ho urs. SIERRA/KATJA Voice ID: [id number] Report ID: [id number]
== END 2023-01-04 15:13 | disposition home or self-care (01) ==
LOC: OR 09:22
PROVIDERS: ATTEND Surgery
PROC: 0YU64JZ Supplement Left Inguinal Region with Synthetic Substitute, Percutaneous Endoscopic Approach (ICD-10-PCS; principal; 2023-01-04 13:45)
PROC: 0JPT0WZ Removal of Totally Implantable Vascular Access Device from Trunk Subcutaneous Tissue and Fascia, Open Approach (ICD-10-PCS; 2023-01-04 13:45)
DX: K40.90 Unilateral inguinal hernia, without obstruction or gangrene, not specified as recurrent (principal); Z45.2 Encounter for adjustment and management of vascular access device; I10 Essential (primary) hypertension; E78.5 Hyperlipidemia, unspecified; K21.9 Gastro-esophageal reflux disease without esophagitis; Z86.73 Personal history of transient ischemic attack (TIA), and cerebral infarction without residual deficits
CPT/HCPCS: 36415; 71046; 85025; 88300; 93005; J0744; J1100; J1170; J2001; J2250; J2405; J2704; J2710; J3010; J7120